=== PATIENT | male | born 1945 | race Caucasian/White ===

== ENCOUNTER → 2018-05-08 07:03 | Outpatient (CLI) | payer MEDICARE, SELFPAY ==
[2018-05-08 07:57] LABS: Add Manual Diff / Slide Review NO; Basophils Absolute Auto 0 /uL (0-100); Basophils Percent Auto 0.4 % (0-2); Eosinophils Absolute Auto 100 /uL (0-450); Eosinophils Percent Auto 2.3 % (2-4); Hematocrit 44.6 % (41-53); Lymphocytes Absolute Auto 1300 /uL (1100-4500); Lymphocytes Percent Auto 27.9 % (25-40); Mean Corpuscular HGB Conc 33.6 % (30-36); Mean Corpuscular Hemoglobin 31.3 PG (26-34); Mean Corpuscular Volume 93.2 fL (80-100); Monocytes Absolute Auto 400 /uL (0-900); Monocytes Percent Auto 9.4 % (3-14); Neutrophils Absolute Auto 2700 /uL (1500-7000); Platelet Count 198 X10^3/uL (150-400); Red Blood Cell Count 4.79 X10^6/uL (4.5-5.9); Red Cell Distribution Width 13.5 % (11.6-14.8); White Blood Cell Count 4.5 X10^3/uL (4.5-11.0)
[2018-05-08 08:22] LABS: Alanine Aminotransferase 45 IU/L (21-72); Albumin 4.1 g/dL (3.5-5.0); Albumin Globulin Ratio 1.4 (1.0-2.8); Alkaline Phosphatase 79 U/L (38-126); Aspartate Aminotransferase 27 IU/L (17-59); Bilirubin Total 0.4 mg/dL (0.2-1.3); Blood Urea Nitrogen 18 mg/dL (9-20); Calcium 8.9 mg/dL (8.4-10.2); Carbon Dioxide 27 mmol/L (22-32); Chloride 105 mmol/L (98-107); Cholesterol 262 mg/dL (140-199); Estimated Glomerular Filt Rate > 60.0 mL/min (>60); Glucose 104 mg/dL (80-110); HDL Cholesterol 56 mg/dL (40-60); HEMOLYSIS < 15 (0-50); LDL Cholesterol Calculated 162 mg/dL (<100); Potassium 3.8 mmol/L (3.4-5.1); Sodium 140 mmol/L (137-145); Total Protein 7.1 g/dL (6.3-8.2); Triglycerides 218 mg/dL (35-150)
[2018-05-08 08:50] LABS: TSH w/ Reflex to FT4 2.07 uIU/mL (0.47-4.68)
[2018-05-08 08:52] LABS: Prostate Specific Antigen Scrn 2.16 ng/mL (0.1-4.0)
== END ==
PROVIDERS: Family Provider Family Medicine; PCP Family Medicine; Visit Provider Family Medicine
DX: Z00.00 Encounter for general adult medical examination without abnormal findings (principal); Z12.5 Encounter for screening for malignant neoplasm of prostate; Z13.6 Encounter for screening for cardiovascular disorders
CPT/HCPCS: 36415; 80053; 80061; 84443; 85025; G0103

== ENCOUNTER → 2018-09-11 14:20 | Outpatient (CLI) | payer MEDICARE, SELFPAY ==
[2018-09-11 14:53] LABS: Hematocrit 41.8 % (41-53); Hemoglobin 14.3 g/dL (13.5-17.5); Mean Corpuscular HGB Conc 34.2 % (30-36); Mean Corpuscular Hemoglobin 31.6 PG (26-34); Mean Corpuscular Volume 92.4 fL (80-100); Platelet Count 196 X10^3/uL (150-400); Red Blood Cell Count 4.52 X10^6/uL (4.5-5.9); Red Cell Distribution Width 13.5 % (11.6-14.8); White Blood Cell Count 4.5 X10^3/uL (4.5-11.0)
[2018-09-11 15:19] LABS: Alanine Aminotransferase 43 IU/L (21-72); Albumin 3.8 g/dL (3.5-5.0); Albumin Globulin Ratio 1.5 (1.0-2.8); Alkaline Phosphatase 78 U/L (38-126); Aspartate Aminotransferase 27 IU/L (17-59); BUN Creatinine Ratio 14.4 (6-22); Bilirubin Total 0.4 mg/dL (0.2-1.3); Blood Urea Nitrogen 13 mg/dL (9-20); Carbon Dioxide 26 mmol/L (22-32); Chloride 108 mmol/L (98-107); Estimated Glomerular Filt Rate > 60.0 mL/min (>60); Globulin 2.6 g/dL (1.7-4.1); Glucose 108 mg/dL (80-110); HEMOLYSIS < 15 (0-50); Lipase 102 U/L (23-300); Potassium 4.3 mmol/L (3.4-5.1); Sodium 141 mmol/L (137-145); Total Protein 6.4 g/dL (6.3-8.2)
[2018-09-11 16:43] LABS: Neutrophils Absolute Manual 2835 /uL (3000-5900); RBC Morphology Normal Morphology; Total Cells Counted 100
== END ==
PROVIDERS: PCP Family Medicine; Visit Provider Family Medicine
DX: E78.5 Hyperlipidemia, unspecified (principal); R53.82 Chronic fatigue, unspecified
CPT/HCPCS: 36415; 80053; 83690; 85025

== ENCOUNTER 2018-12-11 07:53 | Day surgery (SDC) | payer MEDICARE, SELFPAY ==
[2018-12-05 15:02] VITALS: BMI 23.6
[2018-12-11] VITALS (9 sets, daily range): BP systolic 113–131; BP diastolic 69–83; PULSE 78–98; RESP 12–16; TEMP 36.2–36.7; O2SAT 88–98; BMI 23.7
--- NOTE | 2018-12-11 08:46 | PM.HP.1 ---
History of Present Illness History of Present Illness Date Patient Seen: 12/11/18 Time Patient Seen: 08:47 Chief complaint: [id number] Narrative: Patient is gentleman here for repair of bilateral inguinal hernias. Patient History Medical History (Updated 12/05/18 @ 15:04 by Leisa Edwards RN) Chicken pox (Resolved) GERD (gastroesophageal reflux disease) (Chronic ~1989) Hearing loss (Chronic ~1999) Hepatitis A (Acute) Jaundice due to hepatitis (Resolved 1971) Measles (Resolved) Mumps (Resolved) Toe fracture, right (Resolved 2013) Surgical History Anesthesia (Resolved) History of rectal surgery (Resolved 1997) Status post colonoscopy (Resolved 2008) Family History Father Brain tumor Stroke Mother Bowel obstruction Cancer Sister No problems noted. Social History marital status: household members: spouse occupational status: previously employed Smoking Status: Former smoker alcohol intake: current substance use type: does not use Family & Social History Social History: household members spouse Tobacco & Substance use: Tobacco type cigarettes Smoking Status Former smoker alcohol intake current alcohol intake frequency 0-2 drinks per day Substance Use Type marijuana Meds Home Medications and Allergies Home Medications Medication Instructions Recorded Confirmed Type omeprazole 20 mg capsule,delayed 20 mg PO DAILY 10/24/17 12/11/18 History release zolpidem 5 mg tablet 5 mg PO BEDTIME PRN #5 tab 05/09/18 12/05/18 Rx hydrocortisone [Proctosol HC] 2.5 % PA TIDP PRN 12/05/18 12/05/18 History Allergies Allergy/AdvReac Type Severity Reaction Status Date / Time No Known Drug Allergies Allergy Verified 10/25/18 10:04 Review of Systems Review of Systems ROS Unobtainable: All systems reviewed & are unremarkable except as noted in HPI and below Exam Narrative Exam Narrative: Operative no apparent distress. Eyes are nonicteric. Lungs clear. Heart regular rate and rhythm. Abdomen is scaphoid soft nontender. Bilateral inguinal hernias. A small raised area just beneath the umbilicus. No cellulitis. Bilateral inguinal hernias. No rashes of the skin. Alert and oriented x3. Assessment & Plan Assessment & Plan narrative: I have discussed the procedure with him probable use of mesh discussed. He appears to understand. Risks and benefits discussed at length in the office. He has no questions.
--- NOTE | 2018-12-11 08:48 | PM.PREOP ---
Pre-operative Note Interval Note History & Physical reviewed/Exam performed by Physician: Yes Changes to H&P: No
[2018-12-11] MEDS: LACTATED RINGERS 1,000 ML 42 ML IV ×2 (09:01→11:12)
[2018-12-11] MEDS: CEFAZOLIN 2 GM/100 ML FROZ.PIGGY IV (09:06)
--- NOTE | 2018-12-11 09:23 | SUR.OPER ---
Supine on padded OR bed, head on pillow, arms secured on padded arm boards at <90 degrees abduction, legs uncrossed, safety belt at thigh, tape over blanket over lower legs.
[2018-12-11] MEDS: BUPIVACAINE 0.5% (PF) VIAL 30 ML INJ (09:26)
--- NOTE | 2018-12-11 11:32 | PM.OP.1 ---
Operative Date/Time/Diagnoses Date of procedure: 12/11/18 Time of procedure: 11:32 Pre-op diagnosis: Bilateral inguinal hernias reducible. Post-op diagnosis: same (Both were direct hernias. The left side had a lipoma of the cord as well.) Procedure & Clinicians Procedure: Repair with onlay of mesh. See details below Same procedure as scheduled: Yes Indications: Symptomatic bilateral inguinal hernias Surgeon: Harrison Dodson Click Yes if Unassisted: Yes Anesthesia Type: General Operative Notes Findings: Direct hernias. The floor was basically obliterated on both sides. Large amount of preperitoneal fat protruding through. Closure Type: primary Specimen(s): none sent Prosthetic devices, grafts, tissues, transplants, or devices: 2 x 4 in mesh on each side Estimated Blood Loss (mL): 15 Blood products transfused: none Procedure in detail: The patient was placed supine on the operating room table and underwent general LMA anesthesia. He was prepped and draped in the usual fashion. A transverse incision was made overlying the internal ring on the right side and carried down to the level of the external oblique. The external oblique was opened parallel with its fibers through the external ring. The cord structures were elevated. The cremaster was opened proximally and search made for an indirect sac. None was found. The floor was examined and was found to be essentially obliterated. It was paper thin. Large amount of preperitoneal fat was bulging up through the floor. I opened the floor from near the internal ring toward the pubic tubercle. The preperitoneal fat was reduced on the underside. I sewed the cut edge of the lateral tissue to the underside of the medial sewing from pubic tubercle to to form a new internal ring. Using the same suture material I then ran the edge of the ilioinguinal ligament and sewed it to the cut edge of the medial tissue by running back to the pubic tubercle. Suture was tied at the pubic tubercle. . A patch of mesh 2 x 4 in was placed across the floor and tacked at the pubic tubercle, the posterior lamella of the anterior rectus sheath, the ilioinguinal ligament, and superior lateral to the cord. An opening was made as necessary to allow the egress of the cord through the mesh. The opening was made large enough to prevent tight constriction of the cord. Sutures of 0 Tycron were used to secure the mesh. The external oblique was closed with a running 3 0 Vicryl. The subcu was closed with interrupted 3 0 Vicryl. The skin was closed with a running 4 0 Vicryl subcuticular attention was then turned to the left side. A mirror incision was made in the left side and an identical operation was undertaken with a few exceptions. On the left there was a lipoma of the cord that I dissected from cord structures and ligated at the level the deep pick gastric vessels. The distal portion was removed. The tissues were so attenuated in the floor that I chose to suture edge of transversalis and grabbed a portion of the edge of the rectus to the inguinal ligament and the ileopubic tract on the lateral side. I used interrupted sutures of 0 Tycron to do this. This recreated internal ring. I made a relaxing incision in the posterior lamella the anterior rectus sheath to prevent too tight a closure. I then placed a piece of mesh over the entire area and sutured it as described above. Closure on the left was then performed in an aunt and uncle path fashion to that on the right. Mastisol and Steri-Strips were applied to both wounds after look injecting local. Dressing was applied the patient was awakened and extubated taken recovery area in good condition. Complications: none Post-operative Condition: stable Disposition: PACU
--- NOTE | 2018-12-11 12:15 | SUR.PHASEII ---
PT ARRIVED TO PHASE II VIA STRETCHER. PT SITTING UP, ALERT AND TALKING TO RN AND AT BEDSIDE. PT DENIES ANY NAUSEA OR PAIN/DISCOMFORT AT THIS TIME. REVIEWED DC INSTRUCTIONS WITH PT AND PT SPOUSE. NO FURTHER QUESTIONS OR CONCERNS VOICED AT THIS TIME. BED IN LOWEST POSITION AND CALL LIGHT GIVEN TO PT. PT APPEARS COMFORTABLE AT THIS TIME.
== END 2018-12-11 12:40 | disposition home or self-care (01) ==
PROVIDERS: PCP Family Medicine; Visit Provider Specialist
PROC: (CPT 49505; principal; 2018-12-11 09:15)
DX: K40.20 Bilateral inguinal hernia, without obstruction or gangrene, not specified as recurrent (principal); D17.6 Benign lipomatous neoplasm of spermatic cord
CPT/HCPCS: 49505; C1781; J0690; J1100; J1885; J2250; J2405; J2704; J3010

== ENCOUNTER → 2019-08-14 13:19 | Outpatient (CLI) | payer MEDICARE, SELFPAY ==
[2019-08-15 09:14] LABS: COVID19 Sendout NOT DETECTED (Not Detect)
== END ==
PROVIDERS: PCP Family Medicine; Visit Provider Registered Nurse
DX: Z01.812 Encounter for preprocedural laboratory examination (principal)
CPT/HCPCS: 87635

== ENCOUNTER → 2019-08-17 07:12 | Outpatient (CLI) | payer MEDICARE, SELFPAY ==
--- NOTE | 2019-08-17 08:13 | PM.TREADMILL ---
Cardiac Stress Test Report Referral & Results Date Patient Seen: 08/17/19 Time Patient Seen: 08:00 Requesting provider: Carlos Briseno Indication: Weakness Rest ECG: NSR Procedure Note: Today following both written and verbal informed consent, the patient was exercised according to a standard [place] protocol. The patient exercised for a total of 9 minutes achieving a maximum heart rate of 158. Patient's maximum systolic blood pressure was 160. This was an estimated 10.1 METs. Normal hemodynamic response to exercise. No signs or symptoms of angina. Presenting symptom not reproduced with exertion. No change in rhythm. 0.[address] deviations in inferior leads that resolved rapidly with rest. Excellent exercise capacity (ROXI-30% on active scale). Impression: Low probability for ischemia. Rothman treadmill score of 7 is correlated with a 97% 5 year survival rate from cardiac mortality. Please note: Actual ECG tracings can be found in the PACS system.
== END ==
PROVIDERS: PCP Family Medicine; Referring Provider Family Medicine; Visit Provider Family Medicine
DX: R53.1 Weakness (principal)
CPT/HCPCS: 93016; 93017; 93018

== ENCOUNTER → 2020-05-23 14:01 | Outpatient (CLI) | payer MEDICARE, SELFPAY ==
--- NOTE | 2020-05-23 | DI.RAD.S_ITS ---
PROCEDURE: XR LUMBAR SPINE 2-3V INDICATIONS: LEFT LEG PAIN TECHNIQUE: 3 views of the lumbar spine were acquired. COMPARISON: None. FINDINGS: Bones: 5 [id number] vertebrae are present. There is normal bony alignment. No vertebral body compression fractures. No suspicious bony lesions. Mild L1-L2, L2-L3, L3-L4 and L5-S1 degenerative disc disease. Mild L3-L4, L4-L5 and L5-S1 facet arthropathy. Soft tissues: Overlying bowel gas pattern is normal. No suspicious soft tissue calcifications. IMPRESSION: 1. Multilevel degenerative disc disease. 2. Multilevel facet arthropathy. 3. No fracture. No acute osseous lesion. If symptoms and/or clinical suspicion for pathology persists, evaluation with MRI should be considered for further assessment. Dictated by: Samira Sofia MD, PhD on 05/23/2020 at 16:58 Approved by: Samira Sofia MD, PhD on 05/23/2020 at 17:00
== END ==
PROVIDERS: PCP Family Medicine; Referring Provider Chiropractor; Visit Provider Chiropractor
DX: M79.605 Pain in left leg (principal); M51.36 Other intervertebral disc degeneration, lumbar region; M47.816 Spondylosis without myelopathy or radiculopathy, lumbar region
CPT/HCPCS: 72100

== ENCOUNTER → 2020-09-16 14:54 | Outpatient (CLI) | payer MEDICARE, SELFPAY ==
[2020-09-16 15:11] LABS: Bacteria Urine None Seen; RBC Urine None Seen (0-5/HPF); WBC Urine None Seen (0-5/HPF)
[2020-09-16 15:41] LABS: Add Manual Diff / Slide Review NO; Basophils Absolute Auto 0 /uL (0-100); Basophils Percent Auto 0.5 % (0-2); Eosinophils Absolute Auto 0 /uL (0-450); Eosinophils Percent Auto 0.5 % (2-4); Hematocrit 42.6 % (41-53); Hemoglobin 13.9 g/dL (13.5-17.5); Lymphocytes Absolute Auto 800 /uL (1100-4500); Lymphocytes Percent Auto 21.1 % (25-40); Mean Corpuscular HGB Conc 32.8 % (30-36); Mean Corpuscular Hemoglobin 29.8 PG (26-34); Monocytes Absolute Auto 500 /uL (0-900); Monocytes Percent Auto 12.1 % (3-14); Neutrophils Absolute Auto 2500 /uL (1500-7000); Neutrophils Percent Auto 65.8 % (50-75); Platelet Count 178 X10^3/uL (150-400); Red Blood Cell Count 4.68 X10^6/uL (4.5-5.9); Red Cell Distribution Width 13.8 % (11.6-14.8); White Blood Cell Count 3.8 X10^3/uL (4.5-11.0)
[2020-09-16 15:54] LABS: Appearance Urine UA CLEAR; Bilirubin Urine UA NEGATIVE (NEGATIVE); Color Urine UA YELLOW; Glucose Urine UA NEGATIVE (Negative); Ketones Urine UA NEGATIVE (NEGATIVE); Leukocyte Esterase Urine UA NEGATIVE (NEGATIVE); Nitrite Urine UA NEGATIVE (Negative); Occult Blood Urine UA NEGATIVE (Negative); Protein Urine UA NEGATIVE (Negative); Specific Gravity Urine UA <=1.005 (1.000-1.035); Urobilinogen Urine UA 0.2 E.U./dL (0.2)
[2020-09-16 15:58] LABS: Alanine Aminotransferase 52 IU/L (<50); Albumin 3.9 g/dL (3.5-5.0); Albumin Globulin Ratio 1.3 (1.0-2.8); Alkaline Phosphatase 92 U/L (38-126); Aspartate Aminotransferase 43 IU/L (17-59); Bilirubin Total 0.4 mg/dL (0.2-1.3); Blood Urea Nitrogen 13 mg/dL (9-20); C-Reactive Protein Quant 1.5 mg/dL (<1.0); Calcium 8.9 mg/dL (8.4-10.2); Carbon Dioxide 24 mmol/L (22-32); Chloride 106 mmol/L (98-107); Estimated Glomerular Filt Rate > 60.0 mL/min (>60); Glucose 171 mg/dL (80-110); HEMOLYSIS < 15 (0-50); Potassium 4.1 mmol/L (3.4-5.1); Sodium 136 mmol/L (137-145); Total Protein 6.9 g/dL (6.3-8.2)
[2020-09-16 16:08] LABS: Procalcitonin 0.18 ng/mL (<0.5)
[2020-09-16 16:15] LABS: Culture Indicated Urine Cult Not Indicated; Urine Comments Microscopic Normal
[2020-09-16 16:23] LABS: Prostate Specific Antigen 1.49 ng/mL (0.10-4.00)
== END ==
PROVIDERS: PCP Family Medicine; Referring Provider Family Medicine; Visit Provider Family Medicine
DX: I10 Essential (primary) hypertension; R52 Pain, unspecified
CPT/HCPCS: 36415; 80053; 81001; 84145; 84153; 85025; 86140

== ENCOUNTER → 2020-10-07 16:06 | Outpatient (CLI) | payer MEDICARE, SELFPAY ==
[2020-10-07 16:31] LABS: Add Manual Diff / Slide Review NO; Basophils Absolute Auto 0 /uL (0-100); Basophils Percent Auto 0.4 % (0-2); Eosinophils Absolute Auto 100 /uL (0-450); Eosinophils Percent Auto 1.7 % (2-4); Hematocrit 40.1 % (41-53); Hemoglobin 13.3 g/dL (13.5-17.5); Lymphocytes Absolute Auto 1100 /uL (1100-4500); Lymphocytes Percent Auto 22.6 % (25-40); Mean Corpuscular HGB Conc 33.2 % (30-36); Mean Corpuscular Hemoglobin 30.3 PG (26-34); Mean Corpuscular Volume 91.3 fL (80-100); Monocytes Absolute Auto 400 /uL (0-900); Monocytes Percent Auto 8.3 % (3-14); Neutrophils Absolute Auto 3300 /uL (1500-7000); Platelet Count 216 X10^3/uL (150-400); Red Blood Cell Count 4.39 X10^6/uL (4.5-5.9); Red Cell Distribution Width 14.1 % (11.6-14.8)
[2020-10-11 19:39] LABS: Percent Free Testosterone 2.63 % (1.50-4.20); Testosterone Free 6.77 ng/dL (5.00-21.00); Testosterone Total 257.3 ng/dL (264.0-916.0)
== END ==
PROVIDERS: PCP Family Medicine; Referring Provider Family Medicine; Visit Provider Family Medicine
DX: E78.5 Hyperlipidemia, unspecified (principal); R50.9 Fever, unspecified; N52.9 Male erectile dysfunction, unspecified; R52 Pain, unspecified; R53.83 Other fatigue; R68.83 Chills (without fever)
CPT/HCPCS: 36415; 84402; 84403; 85025

== ENCOUNTER → 2020-11-19 10:54 | Outpatient (CLI) | payer MEDICARE, SELFPAY ==
[2020-11-19 11:45] LABS: Add Manual Diff / Slide Review NO; Basophils Absolute Auto 0 /uL (0-100); Basophils Percent Auto 0.3 % (0-2); Eosinophils Absolute Auto 100 /uL (0-450); Eosinophils Percent Auto 1.3 % (2-4); Hematocrit 42.1 % (41-53); Hemoglobin 14.1 g/dL (13.5-17.5); Lymphocytes Absolute Auto 1100 /uL (1100-4500); Lymphocytes Percent Auto 21.9 % (25-40); Mean Corpuscular HGB Conc 33.6 % (30-36); Mean Corpuscular Hemoglobin 30.4 PG (26-34); Mean Corpuscular Volume 90.5 fL (80-100); Monocytes Absolute Auto 500 /uL (0-900); Monocytes Percent Auto 10.3 % (3-14); Neutrophils Absolute Auto 3500 /uL (1500-7000); Neutrophils Percent Auto 66.2 % (50-75); Platelet Count 201 X10^3/uL (150-400); Red Blood Cell Count 4.65 X10^6/uL (4.5-5.9); Red Cell Distribution Width 14.7 % (11.6-14.8); White Blood Cell Count 5.2 X10^3/uL (4.5-11.0)
[2020-11-19 12:05] LABS: Alanine Aminotransferase 34 IU/L (<50); Albumin 4.1 g/dL (3.5-5.0); Albumin Globulin Ratio 1.6 (1.0-2.8); Alkaline Phosphatase 86 U/L (38-126); Aspartate Aminotransferase 27 IU/L (17-59); BUN Creatinine Ratio 20.2 (6-22); Bilirubin Total 0.4 mg/dL (0.2-1.3); Blood Urea Nitrogen 17 mg/dL (9-20); Calcium 9.2 mg/dL (8.4-10.2); Carbon Dioxide 28 mmol/L (22-32); Chloride 106 mmol/L (98-107); Estimated Glomerular Filt Rate > 60.0 mL/min (>60); Globulin 2.5 g/dL (1.7-4.1); Glucose 108 mg/dL (80-110); HEMOLYSIS < 15 (0-50); Potassium 4.2 mmol/L (3.4-5.1); Sodium 138 mmol/L (137-145); Total Protein 6.6 g/dL (6.3-8.2)
[2020-11-19 12:39] LABS: Hemoglobin A1C% w Est Avg Glu 6.1 % (4.0-6.0)
== END ==
PROVIDERS: PCP Family Medicine; Referring Provider Family Medicine; Visit Provider Family Medicine
DX: R53.83 Other fatigue (principal); R50.9 Fever, unspecified; R52 Pain, unspecified; R63.4 Abnormal weight loss
CPT/HCPCS: 36415; 80053; 83036; 85025

== ENCOUNTER → 2020-11-27 08:52 | Outpatient (CLI) | payer MEDICARE, SELFPAY ==
--- NOTE | 2020-11-27 09:43 | DI.CT.S_ITS ---
PROCEDURE: CT CHEST ABD PEL W CON INDICATIONS: Fatigue weight loss shortness of breath fevers TECHNIQUE: After the administration of oral and intravenous contrast, axial sections acquired from the supraclavicular neck to the pubic symphysis. Coronal and sagittal reformats were performed. For radiation dose reduction, the following was used: automated exposure control, adjustment of mA and/or kV according to patient size. COMPARISON: None. FINDINGS: Image quality: Excellent. CHEST: Lower Neck: No enlarged lymph nodes. Thyroid: Unremarkable as visualized Axillae: No enlarged lymph nodes. Chest Wall: Unremarkable. Lungs and Airways: No consolidation or suspicious nodules. Pleura: No pneumothorax or pleural effusions. Heart: Heart size is normal. No pericardial effusion. Thoracic Vessels: The aorta and pulmonary arteries demonstrate normal size. Mediastinum and Va: No enlarged lymph nodes. Esophagus: No wall thickening. There is a large hiatal hernia containing stomach. ABDOMEN: Liver: Unremarkable. Gallbladder: Question 1.4 cm polypoid lesion versus noncalcified gallstone. No gallbladder wall thickening other than this location. Biliary ducts: Unremarkable. Pancreas: Unremarkable. Spleen: Unremarkable. Adrenal Glands: Unremarkable. Kidneys and Ureters: Unremarkable. Stomach and Bowel: There is organo-axial volvulus involving the stomach inside a large hiatal hernia. Peritoneum: No abnormal intraperitoneal fluid. No free air. Ventral Wall: No hernia. Abdominal Nodes: No retroperitoneal or mesenteric adenopathy by size criteria. Vessels: Aorta and inferior vena cava are normal in size. PELVIS: Pelvic Organs: Moderate to severe prostate enlargement. Diffusely prominent bilateral seminal vesicles. Bladder: Mild diffuse bladder wall thickening. Posterior basal nodularity likely represents extrinsic compression secondary to a nodular prostate. Pelvic Nodes: No enlarged lymph nodes. Miscellaneous: No inguinal hernias are seen. Bones: No lytic or blastic bony lesion. Lower lumbar facet arthropathy. IMPRESSION: 1. No evidence of malignancy in the chest. No evidence of acute pulmonary process. 2. Large hiatal hernia with organoaxial volvulus of the stomach. Organo-axial stomach volvulus occurring within a large hiatal hernia is typically incidental 3. Moderately severe prostate enlargement, nodularity at the base of the bladder open (presumed to represent extrinsic compression by the prostate), prominent bilateral seminal vesicles. Suggest correlation with clinical exam and PSA if this has not yet occurred. 4. Question 1.4 cm polypoid lesion of the gallbladder versus noncalcified stone. Recommend right upper quadrant ultrasound. Dictated by: Krunal Terry M.D. on 11/27/2020 at 11:58 Approved by: Krunal Terry M.D. on 11/27/2020 at 12:12
== END ==
PROVIDERS: PCP Family Medicine; Referring Provider Family Medicine; Visit Provider Family Medicine
DX: R50.9 Fever, unspecified (principal); R52 Pain, unspecified; R63.4 Abnormal weight loss; R53.83 Other fatigue; K44.9 Diaphragmatic hernia without obstruction or gangrene; N40.0 Benign prostatic hyperplasia without lower urinary tract symptoms; K82.9 Disease of gallbladder, unspecified
CPT/HCPCS: 71260; 74177; Q9967

== ENCOUNTER → 2021-10-07 09:16 | Outpatient (CLI) | payer MEDICARE, SELFPAY ==
--- NOTE | 2021-10-07 09:47 | DI.ECHO.S_ITS ---
[place] [facility]---------+ [facility] +---------+ : : [address] : : : : [id number] : : : : Phone: [phone]+ Echocardiogram Report + + :Name: SAMANTHA IRBY Study Date: 10/07/2021 Height: 70 in : :[facility] ReadingLocation: Weight: 170 lb : : Gender: Male BSA: 1.9 m2 : :: 1945 Age: 76 yrs BP: 121/74 mmHg: :Reason For Study: BERMUDEZ, HYPERLIPIDEMIA : :Ordering Physician: [place], : :WILMA Tierney Performed By: Poly Coyle : :Referring: WILMA IBRAHIM : + + Interpretation Summary The left ventricle is normal in size. The ejection fraction is estimated to be 55-60%. The right ventricle is normal in size and function. No significant valvular pathology seen. The IVC is of normal diameter and collapses greater than 50% with a sniff. This suggests a low right atrial pressure of 3 mm Hg. Procedure: A two-dimensional transthoracic echocardiogram with color flow and Doppler was performed. The study quality was technically adequate. There is no prior echocardiogram noted for this patient. The patient was in sinus rhythm with heart rates between 75-81 bpm during the exam. Left Ventricle: Proximal septal thickening is noted. The left ventricle is normal in size. There is no echo evidence for significant left ventricular outflow tract obstruction. There is no thrombus. The ejection fraction is estimated to be 55-60%. There are no focal wall motion abnormalities. MV E/A: 1.0 Med Peak E' Kory: 6.9 cm/sec E/E' med: 11.1. Right Ventricle: The right ventricle is normal in size and function. Atria: The left atrial size is normal. Right atrial size is normal. There is no Doppler evidence for an interatrial shunt. Mitral Valve: The mitral valve is normal in structure and function. Redundant elongated chordae are noted. There is trace mitral regurgitation. Aortic Valve: The aortic valve is trileaflet. The aortic valve opens well. There is no aortic valve stenosis. There is trace aortic regurgitation. Tricuspid Valve: The tricuspid valve is normal in structure and function. There is mild tricuspid regurgitation. Pulmonary artery pressures cannot be estimated because of the lack of a measurable TR jet velocity. Pulmonic Valve: The pulmonic valve leaflets are thin and pliable; valve motion is normal. There is no pulmonic valvular regurgitation. Great Vessels: The aortic root is normal size. The dimensions of the ascending aorta are normal. The IVC is of normal diameter and collapses greater than 50% with a sniff. This suggests a low right atrial pressure of 3 mm Hg. Pericardium/ Pleura There is no pericardial effusion. There is no pleural effusion. MMode/2D Measurements & Calculations LVIDd: 4.3 cm LVOT diam: 2.1 cm LVIDs: 2.8 cm Ao root diam: 3.1 cm FS: 35.6 % asc Aorta Diam: 3.2 cm EPSS: 0.46 cm Ao Arch Diam (Prox Trans): 2.9 cm IVSd: 0.48 cm LVPWd: 0.70 cm LV reyes. diameter/BSA (cm/m^2): 2.2 LV sys. diameter/BSA (cm/m^2): 1.4 LA A2 area: 17.9 cm2 RA long axis: 5.3 cm LA A4 area: 21.4 cm2 RA area: 17.2 cm2 LA length (vol): 6.1 cm RA vol: 47.4 ml LA vol: 53.0 ml RA : 24.4 ml/m2 LA vol index: 27.2 ml/m2 IVC diam: 1.4 cm RVD1 (basal): 3.9 cm RVD2 (mid): 3.4 cm TAPSE: 1.8 cm Doppler Measurements & Calculations Ao V2 max: 118.1 cm/sec LVOT Max Kory: 87.2 cm/sec Ao V2 mean: 80.0 cm/sec LV V1 max P.0 mmHg Ao max P.6 mmHg LV V1 VTI: 18.7 cm Ao mean P.0 mmHg CHENCHO(I,D): 2.5 cm2 Ao V2 VTI: 25.6 cm CHENCHO(V,D): 2.5 cm2 sev ratio: 0.73 CHENCHO indexed to BSA (cm^2/m^2): 1.3 MV E max kory: 76.2 cm/sec PA V2 max: 111.2 cm/sec MV A max kory: 74.6 cm/sec PA V2 mean: 72.6 cm/sec MV E/A: 1.0 PA mean P.4 mmHg Med Peak E' Kory: 6.9 cm/sec PA pr(Accel): 37.9 mmHg E/E' med: 11.1 Lat Peak E' Kory: 6.8 cm/sec E/E' lat: 11.1 E/e' average: 11.1 MV dec time: 0.[address] [facility] [facility] 64.3 ml Reading Physician:12:52 PM
--- NOTE | 2021-10-07 10:23 | DI.RAD.S_ITS ---
PROCEDURE: XR CHEST 2V INDICATIONS: BERMUDEZ; large hiatal hernia TECHNIQUE: 2 views of the chest were acquired. COMPARISON: [facility], CT, CT CHEST ABD PEL W CON, 11/27/2020, 9:58. FINDINGS: Surgical changes and devices: None. Lungs and pleura: An incomplete inspiratory result is noted, causing a crowded appearance to the lung markings. No focal infiltrates are seen. No pneumothorax or significant pleural effusions are seen. Mediastinum: Mediastinal contours are normal. Heart size is normal. There is a large hiatal hernia. Bones and chest wall: No suspicious bony abnormalities. Age-appropriate bony degenerative changes are seen. Soft tissues appear unremarkable. IMPRESSION: Low lung volumes, without a focal abnormality seen. Large hiatal hernia. Dictated by: Jono Limon M.D. on 10/07/2021 at 11:01 Approved by: Jono Limon M.D. on 10/07/2021 at 11:02
== END ==
PROVIDERS: PCP Family Medicine; Referring Provider Physician Assistant; Visit Provider Physician Assistant
DX: I07.1 Rheumatic tricuspid insufficiency (principal); R06.00 Dyspnea, unspecified; K44.9 Diaphragmatic hernia without obstruction or gangrene; E78.5 Hyperlipidemia, unspecified
CPT/HCPCS: 71046; 93306

== ENCOUNTER → 2021-12-04 06:35 | Outpatient (CLI) | payer MEDICARE, SELFPAY ==
[2021-12-04 08:42] LABS: Add Manual Diff / Slide Review NO; Basophils Absolute Auto 0 /uL (0-100); Basophils Percent Auto 0.4 % (0-2); Eosinophils Absolute Auto 100 /uL (0-450); Eosinophils Percent Auto 2.1 % (2-4); Hemoglobin 13.1 g/dL (13.5-17.5); Lymphocytes Absolute Auto 1300 /uL (1100-4500); Mean Corpuscular HGB Conc 33.5 % (30-36); Mean Corpuscular Hemoglobin 28.7 PG (26-34); Mean Corpuscular Volume 85.7 fL (80-100); Monocytes Absolute Auto 500 /uL (0-900); Monocytes Percent Auto 10.2 % (3-14); Neutrophils Absolute Auto 3000 /uL (1500-7000); Neutrophils Percent Auto 61.3 % (50-75); Platelet Count 214 X10^3/uL (150-400); Red Blood Cell Count 4.56 X10^6/uL (4.5-5.9); Red Cell Distribution Width 15.4 % (11.6-14.8); White Blood Cell Count 4.9 X10^3/uL (4.5-11.0)
[2021-12-04 09:03] LABS: Hemoglobin A1C% w Est Avg Glu 6.6 % (4.0-6.0)
[2021-12-04 09:14] LABS: Alanine Aminotransferase 27 IU/L (<50); Albumin Globulin Ratio 1.5 (1.0-2.8); Alkaline Phosphatase 88 U/L (38-126); Aspartate Aminotransferase 27 IU/L (17-59); Bilirubin Total 0.4 mg/dL (0.2-1.3); Blood Urea Nitrogen 19 mg/dL (9-20); Calcium 9.2 mg/dL (8.4-10.2); Carbon Dioxide 24 mmol/L (22-32); Chloride 107 mmol/L (98-107); Cholesterol 226 mg/dL (140-199); Estimated Glomerular Filt Rate > 60 mL/min (>60); Globulin 2.7 g/dL (1.7-4.1); Glucose 101 mg/dL (80-110); HDL Cholesterol 52 mg/dL (40-60); HEMOLYSIS < 15 (0-50); LDL Cholesterol Calculated 138 mg/dL (<100); Potassium 4.4 mmol/L (3.4-5.1); Sodium 141 mmol/L (137-145); Total Protein 6.7 g/dL (6.3-8.2); Triglycerides 179 mg/dL (35-150)
[2021-12-04 09:39] LABS: TSH w/ Reflex to FT4 4.07 uIU/mL (0.47-4.68)
== END ==
PROVIDERS: PCP Family Medicine; Referring Provider Internal Medicine Cardiovascular Disease; Visit Provider Internal Medicine Cardiovascular Disease
DX: E78.5 Hyperlipidemia, unspecified (principal); R73.03 Prediabetes; R53.83 Other fatigue; R06.02 Shortness of breath
CPT/HCPCS: 36415; 80053; 80061; 83036; 84443; 85025

== ENCOUNTER → 2022-02-02 08:22 | Outpatient (CLI) | payer MEDICARE, SELFPAY ==
--- NOTE | 2022-02-02 | DI.NM.S_ITS ---
PROCEDURE: NM YESENIA PERF SPECT REST & STR Rest and exercise myocardial perfusion SPECT with gated imaging and ejection fraction RADIOPHARMACEUTICAL: 12 mCi Tc-99m sestamibi IV at rest and 25.4 mCi Tc-99m sestamibi IV at peak exercise. A one day-protocol was performed. INDICATIONS: Shortness of breath TECHNIQUE: Radiopharmaceutical was injected at peak stress test, and also at rest. SPECT images were obtained. SPECT myocardial perfusion images were displayed in short axis, horizontal long axis, and vertical long axis views. Gated images were reviewed using mycujoo software. COMPARISON: None. CARDIAC STRESS: A standard [place] treadmill exercise tolerance test was performed by the patient under the supervision of an attending staff. The patient exercised for 9 minutes and 10 seconds; functional aerobic impairment (ROXI) is -53%. Hemodynamic data: There is normal blood pressure and heart rate response to exercise stress. Patient achieved 107% of maximum predicted heart rate at peak exercise. Symptoms: Patient denied chest pain during exercise. EKG: No diagnostic EKG changes of ischemia; no ectopy. FINDINGS: Raw data: There is good myocardial labeling by radiotracer. No significant motion artifacts. Lrdo-rw-yunwx ratio is 0.27 (normal is less than 0.38 for sestamibi tracer, and less than 0.50 for thallium tracer). Left ventricle function: Gated images demonstrate normal left ventricle wall thickening. No segmental wall motion abnormality. No transient ischemic dilation; TID is 0.8 (normal less than 1.3). The left ventricle resting end-diastolic volume is 59 mL. Left ventricle stress ejection fraction is 89%; normal values are above 45%. Myocardial perfusion: There is normal distribution of activity in the left and right ventricular myocardium. No fixed or reversible perfusion defects. IMPRESSION: Low risk, normal treadmill nuclear stress test. 1) No perfusion evidence of ischemia or infarction. 2) Normal left ventricular size, wall motion, and systolic function (EF post stress 89%). 3) No ST changes with exercise. 4) No angina during the study. 5) Excellent exercise capacity (10.1 METs, ROXI -53%). Target heart rate achieved. Appropriate BP response to exercise. 6) No prior nuclear stress test available for comparison. Dictated by: Andrew Maldonado MD on 02/02/2022 at 17:21 Approved by: Andrew Maldonado MD on 02/02/2022 at 17:24
[2022-02-02 09:38] LABS: COVID19 -Nasal RAPID Negative (Negative)
== END ==
PROVIDERS: PCP Family Medicine; Referring Provider Internal Medicine Cardiovascular Disease; Visit Provider Internal Medicine Cardiovascular Disease
DX: R06.02 Shortness of breath (principal); Z20.822 Contact with and (suspected) exposure to COVID-19
CPT/HCPCS: 78452; 87635; 93017; A9502

== ENCOUNTER → 2022-02-17 07:55 | Outpatient (CLI) | payer MEDICARE, SELFPAY ==
[2022-02-17 09:36] LABS: Hematocrit 41.9 % (41-53); Hemoglobin 14.2 g/dL (13.5-17.5)
[2022-02-17 09:44] LABS: Cholesterol 238 mg/dL (140-199); HDL Cholesterol 55 mg/dL (40-60); LDL Cholesterol Calculated 144 mg/dL (<100); Triglycerides 197 mg/dL (35-150)
[2022-02-17 09:50] LABS: Hemoglobin A1C% w Est Avg Glu 6.4 % (4.0-6.0)
[2022-02-17 10:02] LABS: HEMOLYSIS < 15 (0-50); Iron 79 ug/dL (49-181)
[2022-02-17 10:13] LABS: Percent Iron Saturation 21 % (20-50); Total Iron Binding Capacity 378 ug/dL (261-462); Transferrin 315 mg/dL (206-381)
== END ==
PROVIDERS: PCP Family Medicine; Referring Provider Physician Assistant; Visit Provider Physician Assistant
DX: E11.9 Type 2 diabetes mellitus without complications (principal); E78.2 Mixed hyperlipidemia; D64.9 Anemia, unspecified
CPT/HCPCS: 36415; 80061; 83036; 83540; 83550; 85014; 85018

== ENCOUNTER → 2022-04-01 10:42 | Outpatient (CLI) | payer MEDICARE, SELFPAY ==
--- NOTE | 2022-04-20 08:29 | DIAB.MNT ---
Initial Diabetes Medical Nutrition Therapy Assessment Name: Wiley Aguirre Date: 04/01/22 Time: 9424-0342 Dx: Type II Diabetes Wiley presents for initial DM visit. Attended community diabetes class. States he is trying to avoid DM meds. Has lost 15# since diagnosis due to diet changes, no sugar/white flour, sweets. Endorses improved energy. Prior to dx, symptoms included burning feet, loss of feeling in LE. Still having some burning in feet. Makes bread from scratch but now uses ww flour. Has questions regarding pathophysiology, A1c, diet recs. Looking for literature resources. Feels his lifestyle changes are sustainable. Happy with current diet. Diet Recall: 7a: eggs, toast, coffee with cream 10a: nuts 1130a: sandwich with cheese and tomato on ww 4p: apple 7p: 1c brown rice or potatoes, pro, veggies 730p: decaf coffee and cream Anthropometrics: Ht: 5'10 Wt: 160# reported Physical Activity: Increased since dx. Reports 45min of brisk walking with a group three days per week. Walks with five days per week for 25-30 min. Self-Monitoring Blood Glucose: None. . Diabetes Medications: None Pertinent Labs: HgA1c: 6.6% 11/2021; 6.4% 02/2022 Past Medical History: (Last Updated 12/05/18 @ 15:04 by Leisa Edwards RN) Chicken pox Childhood GERD (gastroesophageal reflux disease) (~1989) Hearing loss (~1999) Hepatitis A Jaundice due to hepatitis (1971) [id number] Measles Childhood Mumps Childhood Toe fracture, right (2013) 2nd toe Nutrition Rx: Carbohydrates: Meal:45g Snack:15-30g Nutrition Diagnosis: - Nutrition and food related knowledge deficit r/t questions regarding diet for BG mgmgnt, no previous MNT and new dx aeb pt report Intervention: This participant was very receptive. Provided appropriate educational handouts. Discussed the following topics: Completed intake assessment. Discussed barriers to care. Pathophysiology of T2DM HgA1c, its correlation to blood glucose numbers, and rationale for goal Benefits to having glucose meter Recommended servings for carbohydrates at meals and snacks Heart health nutrition Mediterranean diet benefits SMBG vs HgA1c Resources for DM management: websites and books Created SMART goals for patient self-care and success. Goals: Continue current diet Consider getting glucose meter Pair pro and carbs Follow-up: RDN CDCES follow-up prn. May attend class 2 and 3 of DSME classes. Adeline hDillon RDN, MAURA Certified Diabetes Care and Setter [employer] P: [phone] Thank you for this referral
== END ==
PROVIDERS: PCP Family Medicine; Referring Provider Family Medicine; Visit Provider Family Medicine
DX: E11.9 Type 2 diabetes mellitus without complications (principal); Z71.3 Dietary counseling and surveillance
CPT/HCPCS: 97802

== ENCOUNTER → 2022-05-21 07:33 | Outpatient (CLI) | payer MEDICARE, SELFPAY ==
[2022-05-21 08:47] LABS: Hemoglobin A1C% w Est Avg Glu 6.2 % (4.0-6.0)
[2022-05-21 09:31] LABS: Creatinine Urine Random 144.2 mg/dL
[2022-05-21 09:36] LABS: Microalbumin Urine Random < 0.6 mg/dL (0-1.6)
[2022-05-21 10:19] LABS: Prostate Specific Antigen Scrn 1.93 ng/mL (0.1-4.0)
== END ==
PROVIDERS: PCP Family Medicine; Referring Provider Family Medicine; Visit Provider Family Medicine
DX: E11.9 Type 2 diabetes mellitus without complications (principal); Z12.5 Encounter for screening for malignant neoplasm of prostate
CPT/HCPCS: 36415; 82043; 82570; 83036; G0103

== ENCOUNTER → 2022-09-23 11:00 | Outpatient (CLI) | payer MEDICARE, SELFPAY ==
[2022-09-24 09:17] LABS: Labcorp Hemoglobin (Hb) A1c 5.9 % (4.8-5.6)
== END ==
PROVIDERS: PCP Family Medicine; Referring Provider Family Medicine; Visit Provider Family Medicine
DX: E11.9 Type 2 diabetes mellitus without complications (principal)
CPT/HCPCS: 36415; 83036

== ENCOUNTER → 2022-11-10 14:40 | Outpatient (CLI) | payer MEDICARE, SELFPAY ==
[2022-11-10 15:40] LABS: Blood Urea Nitrogen 15 mg/dL (9-20); Calcium 8.9 mg/dL (8.4-10.2); Carbon Dioxide 27 mmol/L (22-32); Chloride 105 mmol/L (98-107); Estimated Glomerular Filt Rate > 60 mL/min (>60); Glucose 103 mg/dL (80-110); HEMOLYSIS < 15 (0-50); Potassium 4.6 mmol/L (3.4-5.1); Sodium 139 mmol/L (137-145)
== END ==
PROVIDERS: PCP Family Medicine; Referring Provider Family Medicine; Visit Provider Family Medicine
DX: E11.9 Type 2 diabetes mellitus without complications (principal)
CPT/HCPCS: 36415; 80048; 83036

== ENCOUNTER → 2022-12-23 15:02 | Outpatient (CLI) | payer MEDICARE, SELFPAY | PROVIDERS: PCP Family Medicine; Referring Provider Family Medicine; Visit Provider Family Medicine | DX: Z23 Encounter for immunization (principal) | CPT/HCPCS: 90471; 90662 ==

== ENCOUNTER → 2023-05-17 06:58 | Outpatient (CLI) | payer MEDICARE, SELFPAY ==
[2023-05-17 08:30] LABS: Add Manual Diff / Slide Review NO; Basophils Absolute Auto 0 /uL (0-100); Basophils Percent Auto 0.3 % (0-2); Eosinophils Absolute Auto 100 /uL (0-450); Eosinophils Percent Auto 2.5 % (2-4); Hematocrit 42.8 % (41-53); Hemoglobin 14.4 g/dL (13.5-17.5); Lymphocytes Absolute Auto 1200 /uL (1100-4500); Lymphocytes Percent Auto 24.5 % (25-40); Mean Corpuscular HGB Conc 33.7 % (30-36); Mean Corpuscular Hemoglobin 31.1 PG (26-34); Mean Corpuscular Volume 92.2 fL (80-100); Monocytes Absolute Auto 500 /uL (0-900); Monocytes Percent Auto 9.7 % (3-14); Neutrophils Absolute Auto 3100 /uL (1500-7000); Platelet Count 198 X10^3/uL (150-400); Red Blood Cell Count 4.64 X10^6/uL (4.5-5.9); Red Cell Distribution Width 13.6 % (11.6-14.8); White Blood Cell Count 4.9 X10^3/uL (4.5-11.0)
[2023-05-17 08:41] LABS: Hemoglobin A1C% w Est Avg Glu 6.1 % (4.0-6.0)
[2023-05-17 09:15] LABS: Alanine Aminotransferase 22 IU/L (<50); Albumin Globulin Ratio 1.5 (1.0-2.8); Alkaline Phosphatase 83 U/L (38-126); Aspartate Aminotransferase 22 IU/L (17-59); BUN Creatinine Ratio 19.6 (6-22); Bilirubin Total 0.6 mg/dL (0.2-1.3); Blood Urea Nitrogen 18 mg/dL (9-20); Carbon Dioxide 26 mmol/L (22-32); Chloride 107 mmol/L (98-107); Cholesterol 234 mg/dL (140-199); Estimated Glomerular Filt Rate > 60 mL/min (>60); Globulin 2.6 g/dL (1.7-4.1); Glucose 105 mg/dL (80-110); HDL Cholesterol 56 mg/dL (40-60); HEMOLYSIS < 15 (0-50); LDL Cholesterol Calculated 145 mg/dL (<100); Potassium 4.2 mmol/L (3.4-5.1); Sodium 141 mmol/L (137-145); Total Protein 6.6 g/dL (6.3-8.2); Triglycerides 163 mg/dL (35-150)
== END ==
PROVIDERS: PCP Family Medicine; Referring Provider Family Medicine; Visit Provider Family Medicine
DX: E11.9 Type 2 diabetes mellitus without complications (principal); E78.2 Mixed hyperlipidemia
CPT/HCPCS: 36415; 80053; 80061; 83036; 85025

== ENCOUNTER 2024-03-20 07:52 | Day surgery (SDC) | payer MEDICARE, SELFPAY ==
[2024-03-20] VITALS (7 sets, daily range): BP systolic 87–133; BP diastolic 48–99; PULSE 72–89; RESP 12–20; TEMP 36.1–36.7; O2SAT 94–98
--- NOTE | 2024-03-20 | PATH_ITS ---
[facility] Accession Number: [id number] No. of containers..01 Tissue . 01 Material submitted: . rectum - RECTAL MASS @ 10 CM . 01 Diagnosis: RECTAL MASS AT 10 CM, BIOPSY: Invasive adenocarcinoma, moderately differentiated, ulcerated. Lymphovascular invasion not identified. Intact DNA mismatch repair proteins by immunohistochemistry; please see below. . . . IMMUNOHISTOCHEMISTRY TESTING FOR MISMATCH REPAIR PROTEINS: . MLH1: Intact nuclear expression. MSH2: Intact nuclear expression. MSH6: Intact nuclear expression. PMS2: Intact nuclear expression. Background nonneoplastic tissue/internal control with intact nuclear expression. . INTERPRETATION: No loss of nuclear expression of MMR proteins: low probability of microsatellite instability-high (MSI-H)* . * There are exceptions to the above IHC interpretations. These results should not be considered in isolation, and clinical correlation with genetic counseling is recommended to assess the need for germline testing. . * This test was developed and the performance characteristics were validated by [employer]. It has not been cleared or approved by the U.S. Food and Drug Administration. [facility] 03/23/2024 1136 Local . 01 Comment: As part of routine senior quality technician, this case was also reviewed by Dr. Annel Martin, who agrees with the diagnosis of invasive adenocarcinoma. The finding of invasive adenocarcinoma was reported to Dr. Aguirre by Dr. Clement on 03/22/2024 at 1 p.m. . 01 Electronically signed: . Terrance Clement MD, PhD, Pathologist NPI- [id number] . 01 Gross description: . Received in formalin with two patient identifiers and 1. Rectal mass at 10 cm, are multiple ferrari soft tissue fragments aggregating to 1.2 x 0.5 x 0.2 cm. Filtered and submitted in cassette A1. ([id number]) /MYESHA 03/21/2024 1038 Local . 01 Pathologist provided ICD-10: C20 . 01 CPT . 934740, [id number], [id number] Specimen Comment: A courtesy copy of this report has been sent to [facility] Pathology Performed at: [address] [id number] MD Herberth Perkins MD Phone: [phone]
--- NOTE | 2024-03-20 | DI.CT.S_ITS ---
PROCEDURE: CT CHEST ABD PEL W CON INDICATIONS: malignant-appearing partially obstructing rectal mass TECHNIQUE: After the administration of intravenous contrast, 5 mm thick sections acquired from the lung apices to the symphysis. 5 mm coronal and sagittal reformats were performed, with additional 7 mm MIP reformats through the lungs. For radiation dose reduction, the following was used: automated exposure control, adjustment of mA and/or kV according to patient size. COMPARISON: [facility], CT, CT CHEST ABD PEL W CON, 11/27/2020, 9:58. FINDINGS: Image quality: Excellent. CHEST: Lower Neck: No enlarged lymph nodes. Thyroid: No thyroid nodules which require sonographic follow up, per consensus guidelines. Axillae: No enlarged lymph nodes. Chest Wall: Unremarkable. Lungs and Pleura: No pneumothorax or pleural effusions. No consolidation or suspicious nodules. Heart: Heart size is normal. No pericardial effusion. Thoracic Vessels: The aorta and pulmonary arteries demonstrate normal size. Mediastinum and Va: No enlarged lymph nodes. Esophagus: Large hiatal hernia. ABDOMEN: Liver: No solid mass. Gallbladder: Cholelithiasis without wall thickening or adjacent fat stranding to suggest acute cholecystitis. Biliary ducts: No biliary dilation. Pancreas: Moderate atrophy. Solid appearing lesion in the tail of the pancreas measuring 1.7 x 1.3 centimeter (series 4, image 103). Spleen: Size is within normal limits. Adrenal Glands: No adrenal nodules. Kidneys and Ureters: No hydronephrosis. No solid mass. No complex renal cystic lesion which requires follow up. Stomach and Bowel: 3.9 centimeter segment thickening of the rectosigmoid junction (series 4, image 178). No adjacent mesorectal lymph nodes. Peritoneum: No abnormal intraperitoneal fluid. No free air. Ventral Wall: No significant ventral hernia. Abdominal Nodes: No retroperitoneal or mesenteric adenopathy by size criteria. Vessels: Aorta and inferior vena cava are normal in size. PELVIS: Pelvic Organs: Unremarkable. Bladder: No bladder wall thickening, accounting for underdistention. Pelvic Nodes: No enlarged lymph nodes. Miscellaneous: No inguinal hernias are seen. Bones: No aggressive osseous abnormality. IMPRESSION: 3.9 centimeter segment of circumferential thickening of the rectosigmoid junction. No adjacent mesorectal lymph nodes. No pelvic lymphadenopathy. No evidence of metastatic disease. Solid-appearing lesion in the tail the pancreas measuring 1.7 x 1.3 centimeter. Remaining pancreatic parenchyma is atrophic. Findings could represent non atrophic tissue, intrapancreatic splenule, less likely neuroendocrine tumor. Recommend nonurgent MRI with contrast for confirmation (pancreatic mass protocol). Large hiatal hernia. Dictated by: Durga Thakkar M.D. on 03/20/2024 at 10:52 Approved by: Durga Thakkar M.D. on 03/20/2024 at 11:00
--- NOTE | 2024-03-20 08:13 | SUR.PREOP ---
Pt presents for colonoscopy with type 6 brown stool despite completion of bowel prep. Fleet enema provided to patient per request of Dr. Aguirre.
[2024-03-20] MEDS: SODIUM CHLORIDE 0.9% 1,000 ML 84 ML IV (08:35)
--- NOTE | 2024-03-20 08:59 | PM.HP.1 ---
History of Present Illness History of Present Illness Date Patient Seen: 03/20/24 Time Patient Seen: 08:20 Chief complaint: SDC Narrative: 78-year-old white male had a previous colonoscopy with polyp over 10 years ago. Presents with what is booked as a screening colonoscopy however he states he is having issues with what he believes to be hemorrhoidal bleeding. [facility] Medical History (Updated 03/20/24 @ 09:00 by Bry Aguirre MD) Colon cancer screening Localized pruritus Mild anemia Fatigue Hemorrhoids Hepatitis A Jaundice due to hepatitis (1971) Chicken pox GERD (gastroesophageal reflux disease) (~1989) Hearing loss (~1999) Measles Mumps Toe fracture, right (2013) Surgical History Anesthesia History of rectal surgery (1997) Status post colonoscopy (2008) Family History Father Brain tumor Stroke Mother Bowel obstruction Cancer Sister No problems noted. Social History marital status: household members: spouse occupational status: previously employed Smoking Status: Former smoker alcohol intake: current substance use type: does not use Meds Home Medications and Allergies Home Medications Medication Instructions Recorded Confirmed Type peg 3350-electrolytes 236 240 ml PO Q10M #4,000 mL 09/16/23 Rx gram-22.74 gram-6.74 gram-5.86 gram solution (Golytely) nirmatrelvir 300 mg (150 mg See Rx Instructions PO .COMPLEX 11/03/23 Rx x2)-ritonavir 100 mg tablet,dose #30 ea pack (Paxlovid) Allergies Allergy/AdvReac Type Severity Reaction Status Date / Time No Known Drug Allergies Allergy Verified 03/20/24 08:10 Review of Systems Review of Systems ROS: Yes All systems reviewed with the patient and are negative except as otherwise documented Exam Vital Signs (past 8 hours): - 03/20/24 08:33 Temperature 97.3 F L Pulse Rate 89 Respiratory Rate 16 Blood Pressure 133/70 Pulse Oximetry 98 Oxygen Delivery Method Room Air Oxygen Delivery Method Room Air Narrative Exam Narrative: Gen: NAD, sitting comfortably in bed, appears well HEENT: Sclera are anicteric, head is normocephalic and atraumatic, trachea is midline. CV: RRR, no JVD Resp: clear to auscultation bilaterally, equal chest wall movement bilaterally Abd: soft, nontender, normoactive bowel sounds Ext: no edema, full range of motion Neuro: Cranial nerves II-XII grossly intact, no focal deficits Skin: No erythema or ecchymosis Assessment & Plan Assessment and plan (1) Colon cancer screening: Status: Acute Time-Based Coding :: [TOTAL MINUTES] spent with patient and on the chart (including review of chart, obtaining history, exam, reviewing outside data, placing orders, documenting exam and treatment plan, and counseling patient) on [DATE].
--- NOTE | 2024-03-20 09:01 | PM.OP.COLON ---
Operative Date/Time/Diagnoses Date of procedure: 03/20/24 Time of procedure: 09:01 Pre-op diagnosis: Colon screening Post-op diagnosis: other (Circumferentially obstructing rectal mass approximately 10 cm from the anal verge) Procedure & Clinicians Study performed: Flexible sigmoidoscopy with biopsy and tattoo Same procedure as scheduled: No (Colonoscopy aborted due to obstructing rectal mass) Indications: Colon screening Surgeon: Bry Aguirre Procedure Notes SCOAP/Timeout: Performed Procedure in detail: Time-out was performed. Mac was induced. Patient was placed in left lateral decubitus position. The perineum was inspected without any gross abnormality. Lubricated adult colonoscope was inserted and advanced to a circumferentially obstructing rectal lesion approximately 10 cm from the anal verge. This was not palpable at the end of my finger on rectal exam. This was switched to a pediatric colonoscope, however the lumen was not able to be traversed. Multiple biopsies were taken of the mass. The mass was firm and friable. Carbon black was injected 2 cm distal to the mass on the anterior and posterior aspects of the rectum.. The colonoscope was withdrawn slowly inspecting the circumference of the rectum. Very small polyps may have been missed, prep quality was adequate. Retroflexed view of the rectum showed small, non prolapsed nonbleeding internal hemorrhoids. The scope was withdrawn the patient was taken to PACU in good condition. Scope withdrawal time: NA Sedation minutes: 14 Findings: possible cancer (Circumferentially obstructing rectal lesion 10 cm from the anal verge) Specimen(s): other (Biopsy rectal mass at 10 cm) Complications: none Impression: Malignant appearing rectal mass Post-procedure Recommendations: Other recommendation(s) (Referral to Colorectal surgery at [facility]) Follow up: as needed Disposition: PACU
--- NOTE | 2024-03-20 09:10 | SUR.PHASEI ---
Report given to Nia
[2024-03-20 09:35] LABS: Add Manual Diff / Slide Review NO; Basophils Absolute Auto 0 /uL (0-100); Basophils Percent Auto 0.3 % (0-2); Eosinophils Absolute Auto 100 /uL (0-450); Eosinophils Percent Auto 1.4 % (2-4); Hematocrit 35.6 % (41-53); Hemoglobin 11.9 g/dL (13.5-17.5); Lymphocytes Absolute Auto 500 /uL (1100-4500); Lymphocytes Percent Auto 13.7 % (25-40); Mean Corpuscular HGB Conc 33.3 % (30-36); Mean Corpuscular Hemoglobin 30.6 PG (26-34); Mean Corpuscular Volume 92.1 fL (80-100); Monocytes Absolute Auto 300 /uL (0-900); Monocytes Percent Auto 8.2 % (3-14); Neutrophils Absolute Auto 2900 /uL (1500-7000); Neutrophils Percent Auto 76.4 % (50-75); Platelet Count 186 X10^3/uL (150-400); Red Blood Cell Count 3.87 X10^6/uL (4.5-5.9); Red Cell Distribution Width 14.1 % (11.6-14.8); White Blood Cell Count 3.7 X10^3/uL (4.5-11.0)
[2024-03-20 09:50] LABS: Alanine Aminotransferase 19 IU/L (<50); Albumin 3.2 g/dL (3.5-5.0); Albumin Globulin Ratio 1.5 (1.0-2.8); Alkaline Phosphatase 79 U/L (38-126); Aspartate Aminotransferase 22 IU/L (17-59); BUN Creatinine Ratio 11.4 (6-22); Bilirubin Total 0.5 mg/dL (0.2-1.3); Blood Urea Nitrogen 9 mg/dL (9-20); Calcium 7.8 mg/dL (8.4-10.2); Carbon Dioxide 23 mmol/L (22-32); Chloride 111 mmol/L (98-107); Estimated Glomerular Filt Rate > 60 mL/min (>60); Globulin 2.2 g/dL (1.7-4.1); Glucose 102 mg/dL (80-110); HEMOLYSIS < 15 (0-50); Potassium 3.2 mmol/L (3.4-5.1); Sodium 140 mmol/L (137-145); Total Protein 5.4 g/dL (6.3-8.2)
[2024-03-20 10:21] LABS: Carcinoembryonic Antigen 1.7 ng/mL (0.1-3.0)
--- NOTE | 2024-03-20 11:40 | SUR.PHASEII ---
Discharge instructions clarified with Dr. Aguirre. Full liquid diet recommended if patient is having constipation or symptoms of obstruction - otherwise regular diet is okay. Referral to colorectal surgeon at [facility] will be placed per Dr. Aguirre.
== END 2024-03-20 11:40 | disposition home or self-care (01) ==
PROVIDERS: PCP Family Medicine; Referring Provider Surgery; Visit Provider Surgery
PROC: 0DJD8ZZ Inspection of Lower Intestinal Tract, Via Natural or Artificial Opening Endoscopic (ICD-10-PCS; CPT 45378; principal; 2024-03-20 08:45)
DX: K62.5 Hemorrhage of anus and rectum (principal); C20 Malignant neoplasm of rectum; Z87.891 Personal history of nicotine dependence; Z86.0100 Personal history of colon polyps, unspecified
CPT/HCPCS: 45305; 71260; 74177; 80053; 82378; 85025; J2704; Q9967

== ENCOUNTER → 2024-03-21 12:46 | Outpatient (CLI) | payer MEDICARE, SELFPAY ==
[2024-03-21 17:00] LABS: Add Manual Diff / Slide Review NO; Basophils Absolute Auto 0 /uL (0-100); Basophils Percent Auto 0.3 % (0-2); Eosinophils Absolute Auto 0 /uL (0-450); Eosinophils Percent Auto 0.7 % (2-4); Hematocrit 40.2 % (41-53); Hemoglobin 13.4 g/dL (13.5-17.5); Lymphocytes Absolute Auto 1000 /uL (1100-4500); Lymphocytes Percent Auto 17.7 % (25-40); Mean Corpuscular HGB Conc 33.4 % (30-36); Mean Corpuscular Hemoglobin 30.7 PG (26-34); Mean Corpuscular Volume 92.1 fL (80-100); Monocytes Absolute Auto 400 /uL (0-900); Monocytes Percent Auto 7.5 % (3-14); Neutrophils Absolute Auto 4000 /uL (1500-7000); Neutrophils Percent Auto 73.8 % (50-75); Platelet Count 211 X10^3/uL (150-400); Red Blood Cell Count 4.36 X10^6/uL (4.5-5.9); Red Cell Distribution Width 14.1 % (11.6-14.8); White Blood Cell Count 5.4 X10^3/uL (4.5-11.0)
[2024-03-21 17:17] LABS: HEMOLYSIS < 15 (0-50); Potassium 3.6 mmol/L (3.4-5.1)
[2024-03-21 17:18] LABS: Alanine Aminotransferase 25 IU/L (<50); Albumin 3.9 g/dL (3.5-5.0); Albumin Globulin Ratio 1.5 (1.0-2.8); Alkaline Phosphatase 84 U/L (38-126); Aspartate Aminotransferase 27 IU/L (17-59); BUN Creatinine Ratio 11.8 (6-22); Bilirubin Total 0.3 mg/dL (0.2-1.3); Blood Urea Nitrogen 10 mg/dL (9-20); Calcium 8.8 mg/dL (8.4-10.2); Carbon Dioxide 26 mmol/L (22-32); Chloride 105 mmol/L (98-107); Estimated Glomerular Filt Rate > 60 mL/min (>60); Globulin 2.6 g/dL (1.7-4.1); Glucose 141 mg/dL (80-110); Sodium 138 mmol/L (137-145); Total Protein 6.5 g/dL (6.3-8.2)
== END ==
PROVIDERS: PCP Family Medicine; Referring Provider Family Medicine; Visit Provider Family Medicine
DX: K86.89 Other specified diseases of pancreas (principal); C18.9 Malignant neoplasm of colon, unspecified; K63.89 Other specified diseases of intestine
CPT/HCPCS: 36415; 80053; 82105; 82378; 85025; 86301; 86304

== ENCOUNTER → 2024-03-22 17:06 | Outpatient (CLI) | payer MEDICARE, SELFPAY ==
--- NOTE | 2024-03-22 17:07 | DI.MRI.S_ITS ---
PROCEDURE: MR AB PANCREATIC/MRCP PROTOCOL INDICATIONS: tail of pancrease mass TECHNIQUE: Coronal HASTE through the abdomen, axial 2-D FLASH in- and [id number], and breath-hold T2 FSE with fat saturation through the biliary system and pancreas. Oblique coronal and axial thin-slice HASTE, radial thick-slab HASTE centered on the extrahepatic bile ducts. Intravenous secretin: Not requested. COMPARISON: [facility], CT, CT CHEST ABD PEL W CON, 03/20/2024, 10:23. FINDINGS: Image quality: Diagnostic. Gallbladder: Cholelithiasis without wall thickening or adjacent fat stranding to suggest acute cholecystitis. Biliary ducts: No biliary dilation. Pancreas: Pancreatic divisum. No ductal dilation. 8 mm T2 hyperintense cystic lesion in the tail of the pancreas (series 5, image 15). In the tail of the pancreas, there is a 1.3 cm T1 isointense, T2 intermediate lesion which follows similar enhancing properties of the spleen (series 13, image 37). OTHER: Lung bases: Large hiatal hernia. Liver: No solid mass. Spleen: Size is within normal limits. Adrenal Glands: No adrenal nodules. Kidneys and Ureters: No hydronephrosis. No solid mass. No complex renal cystic lesion which requires follow up. Stomach and Bowel: Normal colonic caliber, without significant wall thickening. Peritoneum: No abnormal intraperitoneal fluid. No free air. Ventral Wall: No hernia. Abdominal Nodes: No retroperitoneal or mesenteric adenopathy by size criteria. Vessels: Aorta and inferior vena cava are normal in size. Bones: No aggressive osseous abnormality. IMPRESSION: The solid-appearing mass in the tail of the pancreas imaging enhancement characteristics similar to the adjacent spleen. 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 If necessary, this could be confirmed with complete certainty with a tagged red blood cell nuclear medicine examination, versus GI referral for endoscopic evaluation, EUS/FNA, with greater bleeding risk. Alternatively, this could be followed with sequential oncology staging scans. No liver metastases. 7 mm T2 hyperintense cystic lesion in the tail of the pancreas, likely a side branch IPMN. Attention on follow-up. Cholelithiasis without wall thickening or adjacent fat stranding to suggest acute cholecystitis. Dictated by: Durga Thakkar M.D. on 03/23/2024 at 9:23 Approved by: Durga Thakkar M.D. on 03/23/2024 at 9:32
== END ==
PROVIDERS: PCP Family Medicine; Referring Provider Family Medicine; Visit Provider Family Medicine
DX: K63.89 Other specified diseases of intestine (principal); K86.89 Other specified diseases of pancreas; K80.20 Calculus of gallbladder without cholecystitis without obstruction; K44.9 Diaphragmatic hernia without obstruction or gangrene
CPT/HCPCS: 74183; A9579

== ENCOUNTER → 2024-04-07 13:13 | Outpatient (CLI) | payer MEDICARE, SELFPAY ==
--- NOTE | 2024-04-07 13:14 | DI.MRI.S_ITS ---
PROCEDURE: MR PELIS WO/W CON INDICATIONS: rectal protocol for colon CA staging TECHNIQUE: Coronal HASTE, sagittal T2 FSE, axial T1 FSE, axial and coronal nonbreath-hold T2 FSE. Axial dynamic VIBE during administration of contrast. Post-contrast axial and coronal VIBE/2-D FLASH with fat saturation from the iliac crests to the symphysis. Optional diffusion weighted imaging and ADC may be performed. COMPARISON: None. FINDINGS: Image quality: Suboptimal. Due to tumor position, the entire tumor was not completely visualized on some bustillos sequences. Staging may be inaccurate.. Rectum: Morphology: Circumferential Clock face of tumor involvement: 360? Mucinous (high T2 signal): No Craniocaudal length: About 5.5 cm. Distance to anal verge: About 11.5 cm. Distance to top of sphincter complex/anorectal junction: About 9.3 cm. Relationship to anterior peritoneal reflection: Above Tumor at or below puborectalis sling: No T staging: T3c. There is invasion of the muscularis propria, predominantly along the right lateral margin of the proximal end. There are spiculations in the adjacent fat and possible nodular extramural extension measuring roughly 6-7 mm. Depth of extramural invasion: About 6-7 mm. Extramural vascular invasion: None. T3 tumors only: distance to mesorectal fascia (circumferential resection margin): 6 mm. Pelvic organ involvement: Genitourinary: None. Pelvic sidewall (obturator internus, piriformis, ischiococcygeus muscles): No Pelvic floor (pubococcygeus, iliococcygeus, puborectalis, levator plate): No Sacrum: No Vessels (internal and external iliac arteries and veins): No Nerves (lumbosacral nerve roots): No Regional lymph nodes (mesorectal, inguinal, iliac): No Other bowel and peritoneum: No pathologic free pelvic fluid. More proximal colon and small bowel loops are normal in caliber. Bones: Marrow is normal in overall signal. IMPRESSION: Incomplete visualization of the entire tumor on small [id number] oblique axial T2 imaging. It is uncertain if this would affect staging. 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 No lymphadenopathy. Dictated by: Robina Washington M.D. on 04/18/2024 at 9:14 Approved by: Robina Washington M.D. on 04/18/2024 at 9:43
== END ==
PROVIDERS: PCP Family Medicine; Referring Provider Family Medicine; Visit Provider Family Medicine
DX: C18.9 Malignant neoplasm of colon, unspecified (principal); K63.89 Other specified diseases of intestine; K86.89 Other specified diseases of pancreas; C20 Malignant neoplasm of rectum
CPT/HCPCS: 72197; A9579

== ENCOUNTER 2024-07-22 16:22 | Observation (INO) | payer MEDICARE, SELFPAY ==
[2024-07-22] VITALS (18 sets, daily range): BP systolic 114–147; BP diastolic 59–72; PULSE 94–118; RESP 16–20; TEMP 36.8–37.9; O2SAT 94–100; BMI 19.6
--- NOTE | 2024-07-22 16:36 | DI.RAD.S_ITS ---
PROCEDURE: XR CHEST 1V INDICATIONS: suspected sepsis TECHNIQUE: One view of the chest was acquired. COMPARISON: [facility], CR, XR CHEST 2V, 10/07/2021, 10:39. FINDINGS: Surgical changes and devices: Right chest wall port tip projects over the low SVC. Lungs and pleura: Streaky left basilar atelectasis. No pleural effusions or pneumothorax. Mediastinum: Mediastinal contours appear normal. Heart size is normal. Moderate hiatal hernia. Bones and chest wall: No suspicious bony lesions. Overlying soft tissues appear unremarkable. IMPRESSION: No acute cardiopulmonary abnormality is seen. Dictated by: Durga Thakkar M.D. on 07/22/2024 at 17:02 Approved by: Durga Thakkar M.D. on 07/22/2024 at 17:02
[2024-07-22 16:51] LABS: Hematocrit 38.4 % (41-53); Hemoglobin 13.4 g/dL (13.5-17.5); Mean Corpuscular HGB Conc 34.8 % (30-36); Mean Corpuscular Volume 89.2 fL (80-100); Platelet Count 120 X10^3/uL (150-400); Red Cell Distribution Width 15.2 % (11.6-14.8)
[2024-07-22 16:52] LABS: INR 1.2 (0.9-1.3); Prothrombin Time 14.1 SECONDS (9.4-12.5)
[2024-07-22 16:55] LABS: PTT Partial Thromboplastin Tim 35 SECONDS (25.1-36.5); White Blood Cell Count 1.9 X10^3/uL (4.5-11.0)
[2024-07-22] MEDS: SODIUM CHLORIDE 0.9% 1,000 ML 1000 ML IV ×2 (16:55→19:51)
[2024-07-22 16:56] LABS: Add Manual Diff / Slide Review YES
[2024-07-22 17:03] LABS: Lactate (Lactic Acid) 1.5 mmol/L (0.7-2.1)
[2024-07-22 17:04] LABS: Alanine Aminotransferase 111 IU/L (<50); Albumin 3.4 g/dL (3.5-5.0); Albumin Globulin Ratio 1.1 (1.0-2.8); Alkaline Phosphatase 115 U/L (38-126); Aspartate Aminotransferase 87 IU/L (17-59); BUN Creatinine Ratio 17.2 (6-22); Bilirubin Total 0.7 mg/dL (0.2-1.3); Blood Urea Nitrogen 15 mg/dL (9-20); Calcium 8.2 mg/dL (8.4-10.2); Carbon Dioxide 25 mmol/L (22-32); Chloride 101 mmol/L (98-107); Estimated Glomerular Filt Rate > 60 mL/min (>60); Glucose 120 mg/dL (70-99); HEMOLYSIS < 15 (0-50); Lipase 51 U/L (23-300); Potassium 3.3 mmol/L (3.4-5.1); Sodium 132 mmol/L (137-145); Total Protein 6.4 g/dL (6.3-8.2)
--- NOTE | 2024-07-22 17:17 | PC.NURSE ---
pt and pt report intermittent diarrhea ongoing one month, worse after chemo treatments. pt reports approx 2-3 watery BMs per day, sometimes uncontrollable where pt can't make it bathroom in time. This nurse placed BSC at pt bed just in case an urgent bout of diarrhea occurs, offered pt to wear absorbent brief/pullup but pt declined. Told pt to call if feeling need to use BSC so we can assist. pt/ agreed
[2024-07-22 17:21] LABS: Procalcitonin 0.066 ng/mL (<0.5)
[2024-07-22 17:31] LABS: Neutrophils Absolute Manual 1045 /uL (3000-5900); Total Cells Counted 100
[2024-07-22 17:32] LABS: RBC Morphology Normal Morphology
--- NOTE | 2024-07-22 19:03 | ED.NAVMDI ---
HPI - Nausea/Vomiting/Diarrhea General Chief complaint: Nausea/Vomiting/Diarrhea Stated complaint: diarrehea, fever - chemo therapy Time Seen by Provider: 07/22/24 17:18 History of Present Illness HPI Narrative: Patient is a 78-year-old male with diagnosis of rectal adenocarcinoma stage III T3 N0 M0 currently getting chemo therapy on FOLFOX followed by [facility] presenting today with fever of 100.5. states that he was shaking and chilled she took his temperature drawn 3:00 a.m. and it was 100.5 at which point she brought him immediately to the emergency department. He was not given Tylenol. He is afebrile here. He continues to have diarrhea which is side effect of chemotherapy. He was got 2-3 episodes today. No significant abdominal pain no cough no sore throat. He is staying hydrated but has a decrease in appetite. Nausea is tolerable right now. Related Data Home Medications Medication Instructions Recorded Confirmed No Known Home Medications 07/22/24 07/22/24 Allergies Allergy/AdvReac Type Severity Reaction Status Date / Time No Known Drug Allergies Allergy Verified 07/12/24 08:27 Patient History Medical History Colon cancer screening Localized pruritus Mild anemia Fatigue Hemorrhoids Hepatitis A Jaundice due to hepatitis (1971) Chicken pox GERD (gastroesophageal reflux disease) (~1989) Hearing loss (~1999) Measles Mumps Toe fracture, right (2013) Surgical History Anesthesia History of rectal surgery (1997) Status post colonoscopy (2008) Family History Father Brain tumor Stroke Mother Bowel obstruction Cancer Sister No problems noted. Social History marital status: household members: spouse occupational status: previously employed Smoking Status: Former smoker alcohol intake: current substance use type: does not use alcohol intake frequency: 0-2 drinks per day Exam Initial Vital Signs Initial Vital Signs: Vital Signs Pulse Rate 118 H 07/22/24 16:29 Pulse Oximetry 100 07/22/24 16:29 GENERAL: Alert week 78-year-old male and in no acute distress. HEENT: Head atraumatic,EOMI, pupils reactive, face symmetric, drymucous membranes PHARYNX: No erythema, no tonsillar exudate, no cervical lymphadenopathy CARDIOVASCULAR: Regular rate and rhythm without murmurs, rubs or gallops. RESPIRATORY: Breath sounds equal bilaterally, no wheezes rales or rhonchi. ABDOMEN: Soft, nontender. Normoactive bowel sounds all 4 quadrants. No guarding or rebound. : No CVA tenderness EXTREMITIES: Normal range of motion, no clubbing or edema. Neurovascularly intact NEUROLOGICAL: Alert and oriented x4.Normal gait and speech. Cranial nerves II through XII grossly intact. SKIN: Warm, dry, no laceration, no petechiae, no rashes or lesions. Course Orders Ordered: ED Orders 07/22/24 19:57 Covid-19 + FLU A/B + RSV - PCR Stat 07/22/24 20:18 Urinalysis and Microscopic Stat Acetaminophen (Acetaminophen 325 Mg Tablet) 650 mg PO Q6H PRN PRN Reason: Fever/Mild Pain (1-3) Al Hydrox/Mg Hydrox/Simethicone (Mag Hydrox/Alum/Simeth 30 Ml Udc) 30 ml PO Q6HR PRN PRN Reason: Dyspepsia Enoxaparin Sodium (Enoxaparin 40 Mg/0.4 Ml Syringe) 40 mg SUBCUT DAILY ELIJAH Sodium Chloride (Normal Saline 0.45%) 1,000 mls @ 100 mls/hr IV CONT ELIJAH Last Admin: 07/23/24 00:37 Dose: 100 mls/hr Documented By: MS Piperacillin Sod/Tazobactam (Sod 3.375 gm/ Sodium Chloride) 100 mls @ 25 mls/hr IV Q8H ELIJAH Last Admin: 07/23/24 00:38 Dose: 25 mls/hr Documented By: MS Naloxone HCl (Naloxone 0.4 Mg/Ml Vial) 0.2 mg IV Q2MIN PRN PRN Reason: Opiate Reversal Ondansetron HCl (Ondansetron 4 Mg/2 Ml Inj) 4 mg IV Q8HR PRN PRN Reason: Nausea And Vomiting Sodium Chloride (Sodium Chloride 0.9% Flush) 10 ml IV PRN PRN PRN Reason: Flush Sodium Chloride (Sodium Chloride 0.9% Flush) 10 ml IV BID ELIJAH Discontinued Medications Sodium Chloride (Normal Saline 0.9%) 1,000 mls @ 1,000 mls/hr IV BOLUS ONE Stop: 07/22/24 17:35 Last Infusion: 07/22/24 18:07 Dose: Infused Documented By: JOSE E Admin: 07/22/24 16:55 Dose: 1,000 mls/hr Documented By: JOSE E Piperacillin Sod/Tazobactam (Sod 4.5 gm/ Sodium Chloride) 100 mls @ 200 mls/hr IV NOW ONE Stop: 07/22/24 19:00 Last Infusion: 07/22/24 20:11 Dose: Infused Documented By: Admin: 07/22/24 19:07 Dose: 200 mls/hr Documented By: SB Sodium Chloride (Normal Saline 0.9%) 1,000 mls @ 1,000 mls/hr IV BOLUS ONE Stop: 07/22/24 20:13 Last Infusion: 07/22/24 20:30 Dose: Infused Documented By: JOSE E Admin: 07/22/24 19:51 Dose: 1,000 mls/hr Documented By: JOSE E Vancomycin HCl (Vancomycin) 1,250 mg in 250 mls @ 166.667 mls/hr IV NOW ONE Stop: 07/22/24 23:29 Last Admin: 07/22/24 22:23 Dose: 250 mls/hr Documented By: MS Sodium Chloride (Normal Saline 0.9%) 1,000 mls @ 100 mls/hr IV CONT ELIJAH Last Admin: 07/22/24 22:23 Dose: 100 mls/hr Documented By: Piperacillin Sod/Tazobactam (Sod 4.5 gm/ Sodium Chloride) 100 mls @ 25 mls/hr IV Q8H [facility] Ondansetron HCl (Ondansetron 4 Mg/2 Ml Inj) 4 mg IV NOW PRN PRN Reason: Nausea And Vomiting Ondansetron HCl (Ondansetron 4 Mg Odt) 4 mg PO NOW PRN PRN Reason: Nausea And Vomiting Vital Signs Vital signs: Vital Signs - 8 hr 07/22/24 19:57 07/22/24 20:00 07/22/24 20:30 Temperature 99.2 F Pulse Rate 104 H 108 H Respiratory Rate Blood Pressure Pulse Oximetry 97 95 07/22/24 21:00 07/22/24 21:09 07/22/24 21:09 Temperature Pulse Rate 104 H 107 H Respiratory Rate 16 Blood Pressure 133/63 Pulse Oximetry 95 99 MDM - Nausea/Vomiting/Diarrhea Lab Data 07/22/24 16:36 07/22/24 16:36 Labs: Lab Results 07/22/24 07/22/24 07/22/24 Range/Units 16:36 19:57 20:18 WBC 1.9 L* (4.5-11.0) X10^3/uL RBC 4.30 L (4.5-5.9) X10^6/uL Hgb 13.4 L (13.5-17.5) g/dL Hct 38.4 L (41-53) % MCV 89.2 (80-100) fL MCH 31.0 (26-34) PG MCHC 34.8 (30-36) % RDW 15.2 H (11.6-14.8) % Plt Count 120 L (150-400) X10^3/uL Neut % (Auto) Not Reportable Lymph % (Auto) Not Reportable [place] % (Auto) Not Reportable Eos % (Auto) Not Reportable Baso % (Auto) Not Reportable Lymph # (Auto) Not Reportable [place] # (Auto) Not Reportable Baso # (Auto) Not Reportable Total Counted 100 Seg Neutrophils % 55.0 (38-70) % Lymphocytes % (Manual) 39.0 (25-45) % Monocytes % (Manual) 3.0 (2-11) % Eosinophils % (Manual) 3.0 (2-4) % Neutrophils # (Manual) 1045 L (4521-6582) /uL RBC Morphology Normal morphology PT 14.1 H (9.4-12.5) SECONDS INR 1.2 (0.9-1.3) APTT 35 (25.1-36.5) SECONDS Sodium 132 L (137-145) mmol/L Potassium 3.3 L (3.4-5.1) mmol/L Chloride 101 (98-107) mmol/L Carbon Dioxide 25 (22-32) mmol/L BUN 15 (9-20) mg/dL Creatinine 0.87 (0.66-1.25) mg/dL Estimated GFR > 60 (>60) mL/min BUN/Creatinine Ratio 17.2 (6-22) Glucose 120 H (70-99) mg/dL Lactate 1.5 (0.7-2.1) mmol/L Calcium 8.2 L (8.4-10.2) mg/dL Total Bilirubin 0.7 (0.2-1.3) mg/dL AST 87 H (17-59) IU/L ALT 111 H (<50) IU/L Alkaline Phosphatase 115 (38-126) U/L Total Protein 6.4 (6.3-8.2) g/dL Albumin 3.4 L (3.5-5.0) g/dL Globulin 3.0 (1.7-4.1) g/dL Albumin/Globulin Ratio 1.1 (1.0-2.8) Lipase 51 (23-300) U/L Procalcitonin 0.066 (<0.5) ng/mL Urine Color Yellow Urine Appearance Clear Urine pH 5.5 (4.5-8.0) Ur Specific [place] 1.020 (1.000-1.035) Urine Protein Negative (Negative) Urine Glucose (UA) Negative (Negative) g/dL Urine Ketones 1+ H (NEGATIVE) Urine Occult Blood Negative (Negative) Urine Nitrate Negative (Negative) Urine Bilirubin Negative (NEGATIVE) Urine Urobilinogen 1.0 (0.2) E.U./dL Ur Leukocyte Esterase Negative (NEGATIVE) Urine RBC None seen (0-5/HPF) Urine WBC None seen (0-5/HPF) Ur Squamous Epith Cells None seen (0-5/HPF) Urine Bacteria None seen (None) Ur Culture Indicated? Cult not indicated Vol Urine Centrifuged 10ml (spun) SARS-CoV-2 (PCR) Negative (Negative) Influenza A (RT-PCR) Flu a negative (NEGATIVE) Influenza B (RT-PCR) Flu b negative (NEGATIVE) RSV (PCR) Negative (Negative) Urine Dip Bedside Urine Glucose Negative Bedside Urine Bilirubin - Negative Bedside Urine Ketone + 15 Urine Specific [place] 1.020 Bedside Urine Occult Blood - Negative Bedside Urine pH 6.0 Bedside Urine Protein - Negative Bedside Urine Urobilinogen - Negative Bedside Urine Nitrite - Negative Bedside Urine Leukocytes - Negative Esterase Imaging Data Chest x-ray: Radiologist's Impression: PROCEDURE: XR CHEST 1V INDICATIONS: suspected sepsis TECHNIQUE: One view of the chest was acquired. COMPARISON: [facility], , XR CHEST 2V, 10/07/2021, 10:39. FINDINGS: Surgical changes and devices: Right chest wall port tip projects over the low SVC. Lungs and pleura: Streaky left basilar atelectasis. No pleural effusions or pneumothorax. Mediastinum: Mediastinal contours appear normal. Heart size is normal. Moderate hiatal hernia. Bones and chest wall: No suspicious bony lesions. Overlying soft tissues appear unremarkable. IMPRESSION: No acute cardiopulmonary abnormality is seen. Dictated by: Durga Thakkar M.D. on 07/22/2024 at 17:02 MDM Narrative Medical decision making narrative: MDM CC: Fever Complicating co-morbidities: Colorectal cancer currently on FOLFOX followed by [facility] Data collected from: Patient and Medical records reviewed: CT chest abdomen pelvis from 03/20/2024 does show a pancreatic mass as well Differential considered: Neutropenic fever sepsis Exam documented above, pertinent findings include: Dry mucous membranes weak alert abdomen soft breath sounds clear Lab Test results independently reviewed as above. Pertinent findings: WBC 1.9 neutrophils 1045 lactate 1.5 Sodium 132 potassium 3.3 chloride 101 carbon dioxide 25 BUN 15 creatinine 0.87 AST 85 ALT 111 alk-phos 115 Urinalysis negative for infection Viral panel negative Imaging studies independently reviewed: Chest x-ray no acute cardiopulmonary process Consultations: 1920 Marline, on-call oncologist updated patient's symptoms test results. Does recommend that with neutrophils being low and elderly age along with recent chemotherapy recommends keeping in hospital to monitor which way neutrophils are going to go and blood cultures Dr. Rosas updated on patient's symptoms test results accepts Treatments: IV fluids Zosyn vancomycin Re-evaluations: Patient overall remains hemodynamically stable no concern for severe sepsis Discussion: 78-year-old male currently undergoing chemotherapy for colorectal cancer presenting today with fever at home of 100.5 which sounds like rigors as well. No obvious source. He was quite neutropenic but neutrophils are low at 1045. Abdomen is soft breath sounds are clear and equal. Recommendations of our [facility] ER noted that patient be observed to monitor blood work. Patient he was agreeable to this along with his . Abdomen is soft no real need to do repeat CT scanning at this time. Given Zosyn and vancomycin empirically for antibiotics. It remains afebrile here in the ED Discharge Plan Departure Patient Disposition: Admitted as Observation Clinical Impression: Fever and neutropenia Admit Date/Time: 07/22/24 21:15 Admit Provider: Carlos Briseno
[2024-07-22] MEDS: PIPERACILLIN/TAZO 4.5 GM in SODIUM CHLORIDE 0.9% 100 ML IV (19:07)
[2024-07-22 20:35] LABS: Influenza A - CEPHEID Flu A NEGATIVE (NEGATIVE); Influenza B - CEPHEID Flu B NEGATIVE (NEGATIVE); Respiratory Syncytial Virus Negative (Negative)
[2024-07-22 20:40] LABS: Appearance Urine UA CLEAR; Bilirubin Urine UA NEGATIVE (NEGATIVE); Color Urine UA YELLOW; Glucose Urine UA NEGATIVE (Negative); Ketones Urine UA 1+ (NEGATIVE); Leukocyte Esterase Urine UA NEGATIVE (NEGATIVE); Nitrite Urine UA NEGATIVE (Negative); Occult Blood Urine UA NEGATIVE (Negative); Protein Urine UA NEGATIVE (Negative); pH Urine UA 5.5 (4.5-8.0)
[2024-07-22 20:44] LABS: COVID-19 CEPHEID 4-PLEX PCR Negative (Negative)
[2024-07-22 20:56] LABS: Bacteria Urine None Seen; Culture Indicated Urine Cult Not Indicated; RBC Urine None Seen (0-5/HPF); Squamous Epithelial Cell Urine None Seen (0-5/HPF); Urine Volume 10mL (spun); WBC Urine None Seen (0-5/HPF)
[2024-07-22] MEDS: SODIUM CHLORIDE 0.9% 1,000 ML 100 ML IV (22:23)
[2024-07-22] MEDS: VANCOMYCIN 1,250 MG/250 ML PIGGYBACK 250 MG IV (22:23)
[2024-07-23] MEDS: SODIUM CHLORIDE 0.45% 1,000 ML 100 ML IV (00:37)
[2024-07-23] MEDS: PIPERACILLIN/TAZO 3.375 GM in SODIUM CHLORIDE 0.9% 100 ML IV ×3 (00:38→17:27)
[2024-07-23 05:29] LABS: Add Manual Diff / Slide Review NO; Basophils Absolute Auto 0 /uL (0-100); Basophils Percent Auto 0.3 % (0-2); Eosinophils Absolute Auto 0 /uL (0-450); Eosinophils Percent Auto 0.4 % (2-4); Hematocrit 31.2 % (41-53); Lymphocytes Absolute Auto 400 /uL (1100-4500); Lymphocytes Percent Auto 20.5 % (25-40); Mean Corpuscular HGB Conc 35.3 % (30-36); Mean Corpuscular Hemoglobin 31.2 PG (26-34); Mean Corpuscular Volume 88.3 fL (80-100); Monocytes Absolute Auto 100 /uL (0-900); Monocytes Percent Auto 2.8 % (3-14); Neutrophils Absolute Auto 1600 /uL (1500-7000); Platelet Count 76 X10^3/uL (150-400); Red Blood Cell Count 3.54 X10^6/uL (4.5-5.9); White Blood Cell Count 2.1 X10^3/uL (4.5-11.0)
[2024-07-23 05:37] LABS: Alanine Aminotransferase 96 IU/L (<50); Albumin 2.6 g/dL (3.5-5.0); Albumin Globulin Ratio 1.1 (1.0-2.8); Alkaline Phosphatase 93 U/L (38-126); Aspartate Aminotransferase 80 IU/L (17-59); BUN Creatinine Ratio 13.6 (6-22); Bilirubin Total 0.8 mg/dL (0.2-1.3); Blood Urea Nitrogen 11 mg/dL (9-20); Carbon Dioxide 18 mmol/L (22-32); Chloride 103 mmol/L (98-107); Estimated Glomerular Filt Rate > 60 mL/min (>60); Globulin 2.4 g/dL (1.7-4.1); Glucose 100 mg/dL (70-99); HEMOLYSIS < 15 (0-50); Potassium 2.8 mmol/L (3.4-5.1); Sodium 127 mmol/L (137-145)
[2024-07-23 07:00] VITALS: O2SAT 92
[2024-07-23 08:00] VITALS: BP 102/49; PULSE 84; RESP 18; TEMP 36.9; O2SAT 95
[2024-07-23 08:25] LABS: Adenovirus F 40/41 Not Detected (Not Detect); Astrovirus Not Detected (Not Detect); Campylobacter Not Detected (Not Detect); Clostridium difficile toxin AB Not Detected (Not Detect); Cryptosporidium Not Detected (Not Detect); Cyclospora cayetanensis Not Detected (Not Detect); Entamoeba histolytica Not Detected (Not Detect); Enteroaggregative E.coli Not Detected (Not Detect); Enteropathogenic E.coli Not Detected (Not Detect); Enterotoxigenic E.coli It/st Not Detected (Not Detect); Giardia lamblia Not Detected (Not Detect); Norovirus GI/GII Not Detected (Not Detect); Plesiomonsa shigelloides Not Detected (Not Detect); Rotavirus A Not Detected (Not Detect); Salmonella Not Detected (Not Detect); Sapovirus Not Detected (Not Detect); Shiga-like toxin-prod E.coli Not Detected (Not Detect); Shigella/Enteroinvasive E.coli Not Detected (Not Detect); Vibrio Not Detected (Not Detect); Vibrio cholerae Not Detected (Not Detect); Yersinia enterocolitica Not Detected (Not Detect)
--- NOTE | 2024-07-23 08:30 | PM.HP.IH.1 ---
History of Present Illness History of Present Illness Date Patient Seen: 07/23/24 Chief complaint: diarrhea, fever - chemo therapy Narrative: 78-year-old male with rectal carcinoma stage III patient getting chemotherapy and soon to be radiation. He received chemotherapy at [facility]. Patient is receiving FLOWFOX. Patient states he has been doing well feeling weak having a lot of diarrhea with his chemotherapy treatment. He yesterday afternoon patient began to have chills rigors and a low-grade temperature. His was immediately concerned and brought him to the emergency department for evaluation. Patient describes ongoing weakness no cough no respiratory distress. Patient has had symptoms of increasing watery stools which he thinks is consistent with being on chemotherapy. He has poor appetite. No urinary symptoms such as burning. Patient says he is not sleeping well. Especially here in the hospital. He is not having any particular pain. [facility] Medical History Colon cancer screening Localized pruritus Mild anemia Fatigue Hemorrhoids Hepatitis A Jaundice due to hepatitis (1971) Chicken pox GERD (gastroesophageal reflux disease) (~1989) Hearing loss (~1999) Measles Mumps Toe fracture, right (2013) Surgical History Anesthesia History of rectal surgery (1997) Status post colonoscopy (2008) Family History Father Brain tumor Stroke Mother Bowel obstruction Cancer Sister No problems noted. Social History marital status: household members: spouse occupational status: previously employed Smoking Status: Former smoker alcohol intake: current substance use type: does not use Meds Home Medications and Allergies Home Medications Medication Instructions Recorded Confirmed Type No Known Home Medications 07/22/24 07/22/24 History Allergies Allergy/AdvReac Type Severity Reaction Status Date / Time No Known Drug Allergies Allergy Verified 07/12/24 08:27 Exam Vital Signs (past 8 hours): Oxygen Delivery Method Room Air Oxygen Flow Rate 0 Narrative Exam Narrative: Gen.: Alert good historian hard of hearing HEENT: Pupils equal round and reactive or mucosa is dry neck is supple Cardio: S1-S2 regular rate and rhythm Respiratory: Normal respiratory effort Abdomen: Soft nontender Extremities: Warm dry perfused Neurologic: Grossly intact. Objective Labs 05/19/25 04:59 07/23/24 04:59 Labs: Laboratory Results - last 24 hr 07/22/24 07/22/24 07/22/24 16:36 19:57 20:18 WBC 1.9 L* RBC 4.30 L Hgb 13.4 L Hct 38.4 L MCV 89.2 MCH 31.0 MCHC 34.8 RDW 15.2 H Plt Count 120 L Neut % (Auto) Not Reportable Lymph % (Auto) Not Reportable [place] % (Auto) Not Reportable Eos % (Auto) Not Reportable Baso % (Auto) Not Reportable Neut # (Auto) Lymph # (Auto) Not Reportable [place] # (Auto) Not Reportable Eos # (Auto) Baso # (Auto) Not Reportable Total Counted 100 Seg Neutrophils % 55.0 Lymphocytes % (Manual) 39.0 Monocytes % (Manual) 3.0 Eosinophils % (Manual) 3.0 Neutrophils # (Manual) 1045 L RBC Morphology Normal morphology PT 14.1 H INR 1.2 APTT 35 Sodium 132 L Potassium 3.3 L Chloride 101 Carbon Dioxide 25 BUN 15 Creatinine 0.87 Estimated GFR > 60 BUN/Creatinine Ratio 17.2 Glucose 120 H Lactate 1.5 Calcium 8.2 L Total Bilirubin 0.7 AST 87 H ALT 111 H Alkaline Phosphatase 115 Total Protein 6.4 Albumin 3.4 L Globulin 3.0 Albumin/Globulin Ratio 1.1 Lipase 51 Procalcitonin 0.066 Urine Color Yellow Urine Appearance Clear Urine pH 5.5 Ur Specific [place] 1.020 Urine Protein Negative Urine Glucose (UA) Negative Urine Ketones 1+ H Urine Occult Blood Negative Urine Nitrate Negative Urine Bilirubin Negative Urine Urobilinogen 1.0 Ur Leukocyte Esterase Negative Urine RBC None seen Urine WBC None seen Ur Squamous Epith Cells None seen Urine Bacteria None seen Ur Culture Indicated? Cult not indicated Vol Urine Centrifuged 10ml (spun) SARS-CoV-2 (PCR) Negative Influenza A (RT-PCR) Flu a negative Influenza B (RT-PCR) Flu b negative RSV (PCR) Negative 07/23/24 04:59 WBC 2.1 L RBC 3.54 L Hgb 11.0 L Hct 31.2 L MCV 88.3 MCH 31.2 MCHC 35.3 RDW 15.0 H Plt Count 76 L Neut % (Auto) 76.0 H Lymph % (Auto) 20.5 L [place] % (Auto) 2.8 L Eos % (Auto) 0.4 L Baso % (Auto) 0.3 Neut # (Auto) 1600 Lymph # (Auto) 400 L [place] # (Auto) 100 Eos # (Auto) 0 Baso # (Auto) 0 Total Counted Seg Neutrophils % Lymphocytes % (Manual) Monocytes % (Manual) Eosinophils % (Manual) Neutrophils # (Manual) RBC Morphology PT INR APTT Sodium 127 L Potassium 2.8 L Chloride 103 Carbon Dioxide 18 L BUN 11 Creatinine 0.81 Estimated GFR > 60 BUN/Creatinine Ratio 13.6 Glucose 100 H Lactate Calcium 7.0 L Total Bilirubin 0.8 AST 80 H ALT 96 H Alkaline Phosphatase 93 Total Protein 5.0 L Albumin 2.6 L Globulin 2.4 Albumin/Globulin Ratio 1.1 Lipase Procalcitonin Urine Color Urine Appearance Urine pH Ur Specific [place] Urine Protein Urine Glucose (UA) Urine Ketones Urine Occult Blood Urine Nitrate Urine Bilirubin Urine Urobilinogen Ur Leukocyte Esterase Urine RBC Urine WBC Ur Squamous Epith Cells Urine Bacteria Ur Culture Indicated? Vol Urine Centrifuged SARS-CoV-2 (PCR) Influenza A (RT-PCR) Influenza B (RT-PCR) RSV (PCR) Assessment & Plan Assessment and plan (1) Fever and neutropenia: Status: Acute Plan Neutropenic fever patient with neutropenia and fever due to chemotherapy for his rectal carcinoma. Patient had a fever yesterday. Total white blood cell count on admission was 1.9. Absolute neutrophil count currently is 1600. Patient had blood cultures chest x-ray and stool cultures which are pending at this point. Chest x-ray is normal blood cultures show no growth. Urine shows no signs of infection stool cultures are negative. Influenza COVID and RSV are also negative. Patient was admitted to the hospital with prophylactic Zosyn. Overnight he has remained afebrile. He is still weak and having diarrhea. We will continue with Zosyn. Monitor absolute neutrophil count and send home as soon as cultures come back negative. Hypokalemia. Patient with potassium related abnormalities due to chemotherapy and diarrhea. Patient will be given 40 mEq of K riders and we will go ahead and readjust his electrolytes. We will recheck his potassiumsodium this afternoon. Hypo natremia. Patient with low-sodium on admission. Due to half-normal saline which was given overnight. And his diarrhea from the chemotherapy. Will switch his IV fluid to normal saline and monitor his electrolytes. Stage III rectal adenocarcinoma. Currently undergoing chemotherapy. Diarrhea chemotherapy related diarrhea. Imodium if needed. DVT prophylaxis with SCDs. Lovenox will be held if platelets are below 50. Disposition and plan. Admission to the hospital criteria met with peanut fever hypokalemia and hyponatremia. Plan today replace sodium potassium continue with prophylactic antibiotics anticipate discharge in 24 hours Time-Based Coding :: [TOTAL MINUTES] spent with patient and on the chart (including review of chart, obtaining history, exam, reviewing outside data, placing orders, documenting exam and treatment plan, and counseling patient) on [DATE]. Quality VTE Deep Vein Thrombosis/Pulmonary Embolism Present on Admission: No PROFEE Diesel Inspector Document charge(s): Yes Charge Codes Initial inpatient/observation care: [id number]
[2024-07-23] MEDS: POTASSIUM CHLORIDE IN WATER 10 MEQ/100 ML PIGGYBACK 100 MEQ IV ×4 (09:45→13:32)
[2024-07-23] MEDS: ACETAMINOPHEN 325 MG TABLET 650 MG PO (10:20)
--- NOTE | 2024-07-23 13:26 | DIET.CONS ---
Dietary Consultation Note Admission Date: 07/22/2024 21:15 Assessment: 78y M admitted for diarrhea secondary to chemo tx for colorectal cancer referred to nutrition for poor nutrition status. Pt diagnosed with colorectal cancer in March 2024, has had 7.9% unintentional weight loss in 5mo (severe). Met c pt at bedside, states no longer has mouth sores, but has little appetite with severe taste changes nothing tastes as it should. Pt also with cold intolerance. Prefers no cold foods. Pt finds oatmeal and chicken noodle soup most palatable at this time. Pt had just finished 50% lunch -teriyaki chicken, brown rice, stir auguste veg Ht: 177.8 cm Wt: 63.5 kg (-7.9% in 5mo, severe) BMI: 20.0 (severe for age) UBW: 69kg Last BM: 07/23/24 (07/23/24 09:58) MNA: 6 Chan Score: 18 Diet: 07/22/24 Breakfast General (Regular) Diet Diet Modifications: 07/22/24 16:36 NPO Diet Diet Modifications: NPO Type: NPO except for Meds Labs: RBC 3.54 X10^6/uL (4.5-5.9) L 07/23/24 04:59 Hgb 11.0 g/dL (13.5-17.5) L 07/23/24 04:59 Hct 31.2 % (41-53) L 07/23/24 04:59 Creatinine 0.81 mg/dL (0.66-1.25) 07/23/24 04:59 Lactate 1.5 mmol/L (0.7-2.1) 07/22/24 16:36 Nutrition Diagnosis: Severe Acute Protein Calorie Malnutrition r/t inadequate intake aeb 7.9% unintentional weight loss in 5mo (severe), BMI 20.1 (severe for age), pt with dx colorectal cancer with chemo tx side effects of taste changes and poor appetite, MNA on admission 6 (malnourished). Interventions: 1. Educated pt on high kcal/high protein WARM foods to support nutrition status- warm soups, warm cereals, added collagen protein, spoon peanut butter. 2. Collagen protein to be added to warm foods this hospitalization, recc continuing as tolerated in outpatient setting. 3. Recc f/u with oncology RD EER: 1900kcals (30kcal/kg per malnutrition), 72g PRO (1.2g/kg per PCM) Monitoring/Evaluations: adding collagen protein to foods during hospitalization to support nutrition status. Electronically Signed by: Nya Emmanuel 07/23/24 13:26 Clinical Dietitian [address] [id number]
[2024-07-23] MEDS: SODIUM CHLORIDE 0.9% 1,000 ML 150 ML IV (13:32)
--- NOTE | 2024-07-23 14:49 | CM.DANOTE ---
Patient is a 78 yo male who was admitted OBS Status on 07/22/24 for Neutropenic Fever with Potassium and Sodium abnormalities. Pt has [facility] and [employer] for insurance and his PCP is Dr. Carlos Briseno at [facility]. EMR was reviewed. Per MD, pt with hx of rectal carcinoma stage III and getting chemo and soon radiation from Oncologist at [facility]. Pt with increased weakness and diarrhea from chemo treatments and to have fluids and sodium and K today and repeat labs for hopeful discharge home this evening if stable. Per OUTBOARD MOTOR ASSEMBLER and RN, pt mobilized well in room to bathroom and no need for PT eval at this time. SW met bedside with pt and explained role and he confirms he lives in [place] with his spouse Ghada, who is also his DPOA, and both are fairly active and independent at baseline but they have a drying machine receiver that comes a couple times a month and their really good friends have been grocery shopping for them since his cancer dx. Pt denies any HH or other formal CG in place. Their son Jerad lives locally and can assist as needed. Pt confirms his preference is to discharge home when stable and does not anticipate any discharge planning needs and states his good friend plans to provide transport home at d/c as his recently had a humerus fx that she is recovering from. Plan: SW to follow for afternoon labs to confirm his K and sodium normal for plan of discharge home tonight vs tomorrow Tues via friend POV. SW to follow for any further identified discharge planning needs. ELVIN Blackmon Discharge Planning/Care Management CM Discharge Assessment Start: 07/22/24 21:19 Freq: Status: Active Protocol: Document 07/23/24 14:47 BF (Rec: 07/23/24 14:49 [id number]) Discharge Planning Assessment Assigned Regulatory Affairs Director ELVIN Coe DPOA/Assigned Designee Name spouse Ghada Contact Information [phone] Advance Directives? No: states full code Advance Directives on File No History Provided By Patient,Significant Other, Medical Record Has Patient been admitted in last 30 No days? Prior Living Arrangements House Household Members spouse Type of transporation used prior to Drives own vehicle admit Independent with ADL's Yes Is patient alert and oriented? Yes Needs Assistance With Home Chores / Shopping Comment Have drying machine receiver and local friends help with grocery shopping Caregiver for Another Yes: spouse with recent humorous fx Community Services used prior to IV Therapy admission: Comment currently getting chemo for rectal CA and to start radiation soon DME Already Rented / Owned Cane Barriers to Discharge No Discharge Plan Home Transportation Arrangement Friend plans to provide transport at d/c Referrals Initiated None needed Whiteboard Updated in Patient Room with Yes name and ext. # of Regulatory Affairs Director Review Status In Process Please Provide Date Initial DC 07/23/24 Assessment Was Performed Next Review Type Continued Stay Review
[2024-07-23 17:08] LABS: Blood Urea Nitrogen 10 mg/dL (9-20); Calcium 7.4 mg/dL (8.4-10.2); Carbon Dioxide 19 mmol/L (22-32); Chloride 109 mmol/L (98-107); Estimated Glomerular Filt Rate > 60 mL/min (>60); Glucose 101 mg/dL (70-99); HEMOLYSIS 16 (0-50); Potassium 3.5 mmol/L (3.4-5.1); Sodium 133 mmol/L (137-145)
--- NOTE | 2024-07-24 14:05 | PM.DS.IH.1 ---
History of Present Illness History of Present Illness Chief complaint: diarrhea, fever - chemo therapy Narrative: 78-year-old male with rectal carcinoma stage III patient getting chemotherapy and soon to be radiation. He received chemotherapy at [facility]. Patient is receiving FLOWFOX. Patient states he has been doing well feeling weak having a lot of diarrhea with his chemotherapy treatment. He yesterday afternoon patient began to have chills rigors and a low-grade temperature. His was immediately concerned and brought him to the emergency department for evaluation. Patient describes ongoing weakness no cough no respiratory distress. Patient has had symptoms of increasing watery stools which he thinks is consistent with being on chemotherapy. He has poor appetite. No urinary symptoms such as burning. Patient says he is not sleeping well. Especially here in the hospital. He is not having any particular pain. Discharge Providers Provider Date of admission: 07/22/24 21:15 Discharge Date: 07/24/24 Primary care physician: Carlos Briseno MD Consults: 07/22/24 22:36 Consult to Dietitian, Adult Routine Comment: Reason For Exam: wt loss with chemo Discharge provider: Carlos Briseno MD Summary Hospital Course Discharge Diagnosis: Neutropenic fever due to chemotherapy unknown source Stage III rectal carcinoma Acute hypokalemia Acute hyponatremia Diarrhea chemo associated related Hospital Course: Neutropenic fever patient with neutropenia and fever due to chemotherapy for his rectal carcinoma. Patient had low weight blood cell count MARCIO was above 5000 patient had fevers and chills at home. Patient had cultures of blood chest x-ray viral panel testing GI panel testing and urinalysis to rule out her exclude other infections. Patient's cultures ultimately grew out no source of infection. During his hospital stay he was placed on Zosyn IV 24 hours until culture results preliminary were back. During the hospital stay he remained afebrile vital signs were stable no signs of hypotension or significant sepsis. Patient was tolerating diet. Patient had repeat checking of his CBC which was going up. The time of discharge he was transitioned from IV antibiotics to oral antibiotics. Hypokalemia and hyponatremia. Electrolyte abnormalities were due to chemotherapy and diarrhea that he is having from the chemotherapy during the hospital stay his electrolytes were replaced with a sodium containing IV fluids as well as potassium replacement at the time of discharge his sodium had improved as well as his potassium. Stage III rectal adenocarcinoma. Patient currently undergoing chemotherapy soon to begin radiation therapy Diarrhea chemotherapy related diarrhea. Imodium if needed Patient has a follow up with Oncology in 7 days. Exam Vital Signs (past 8 hours): Oxygen Delivery Method Room Air Oxygen Flow Rate 0 Objective Labs 07/23/24 04:59 07/23/24 16:35 Labs: Laboratory Results - last 24 hr 07/23/24 16:35 Sodium 133 L Potassium 3.5 Chloride 109 H Carbon Dioxide 19 L BUN 10 Creatinine 0.77 Estimated GFR > 60 BUN/Creatinine Ratio 13.0 Glucose 101 H Calcium 7.4 L PFSH Medical History Colon cancer screening Localized pruritus Mild anemia Fatigue Hemorrhoids Hepatitis A Jaundice due to hepatitis (1971) Chicken pox GERD (gastroesophageal reflux disease) (~1989) Hearing loss (~1999) Measles Mumps Toe fracture, right (2013) Surgical History Anesthesia History of rectal surgery (1997) Status post colonoscopy (2008) Family History Father Brain tumor Stroke Mother Bowel obstruction Cancer Sister No problems noted. Social History marital status: household members: spouse occupational status: previously employed Smoking Status: Former smoker alcohol intake: current substance use type: does not use Discharge Plan Discharge Plan Patient Disposition: Home Provider Discharge Comment: f/u with oncology in one week Discharge orders & Medications Prescriptions: New amoxicillin-pot clavulanate [Augmentin XR] 1,000-62.5 mg tablet extended release 12 hr 1 tab PO BID 10 Days Qty: 20 0RF Follow up/Referrals: Carlos Briseno MD [Primary Care Provider] - Discharge Health Status Multidrug resistant organism: No MDRO Visit Report/Discharge Packet Stand Alone Forms: Patient Portal/API, Stroke Signs & Symptoms Discharge Data Primary Care Provider: Carlos Briseno Attending Provider: Carlos Briseno Admit Date/Time: 07/22/24 21:15 Quality VTE Deep Vein Thrombosis/Pulmonary Embolism Present on Admission: No IH PROFEE Charge Codes Discharge inpatient/observation: [id number]
== END 2024-07-23 18:20 | disposition home or self-care (01) ==
LOC: ED 21:16 → AC 21:16
PROVIDERS: Emergency Medicine; Family Medicine; Admitting Provider Family Medicine; Emergency Provider Emergency Medicine; PCP Family Medicine; Referring Provider Emergency Medicine; Visit Provider Family Medicine
DX: R50.2 Drug induced fever (principal); R11.2 Nausea with vomiting, unspecified; C20 Malignant neoplasm of rectum; E87.6 Hypokalemia; K52.1 Toxic gastroenteritis and colitis; E87.1 Hypo-osmolality and hyponatremia; Z87.891 Personal history of nicotine dependence; Z11.52 Encounter for screening for COVID-19
CPT/HCPCS: 0241U; 36415; 71045; 80048; 80053; 81001; 81003; 83605; 83690; 84145; 85007; 85025; 85610; 85730; 87040; 87507; 96361; 96365; 96366; 96367; 99284; G0378; J2543; J7050

== ENCOUNTER 2024-07-25 22:53 | Inpatient (IN) | payer MEDICARE, SELFPAY ==
[2024-07-25 22:47] VITALS: BP 124/56; PULSE 125; RESP 18; TEMP 37.7; O2SAT 95; BMI 20.8
[2024-07-25 22:52] VITALS: BP 124/56; PULSE 126; O2SAT 94
--- NOTE | 2024-07-25 22:53 | ED.GENADULT ---
HPI - General Adult General Chief complaint: Fever Stated complaint: Fever Time Seen by Provider: 07/25/24 22:53 Source: patient, EMS, RN notes reviewed and old records reviewed Mode of arrival: EMS Limitations: no limitations History of Present Illness HPI narrative: 78-year-old male with a history of colorectal carcinoma stage III receiving chemotherapy through [facility]. Patient is supposed to receive radiation but has not. He was receiving flow falx. Patient comes from home and it was reported have a fever of 102 F, patient describes being weak and a little bit altered per family EMS. He has been alert and oriented for EMS. He describes some weakness. He denies any fevers that he was aware of, no cough, no difficulty with breathing, no chest pain or pressure. No abdominal back or flank pain. Denies any nausea or vomiting. States he has a lot of diarrhea yesterday. Denies any black or bloody stools. Denies any urinary symptoms. Notes little bit of rash in the inside of his thigh that has been there for a couple of weeks. Patient was recently hospitalized 07/22/2024 discharged home for neutropenia and fever due to chemotherapy, hypokalemia, hyponatremia and suspected diarrhea secondary to chemotherapy. Patient states he was had 4 rounds of chemotherapy is due for 2 more last round was last Tuesday. Has a port in place, denies any drug allergies. Denies tobacco, alcohol or recreational drugs. Dr. Briseno is his primary care physician. Reports normally baseline ambulatory at home. Medics state he was very weak and unable to ambulate. Related Data Previous Rx's Medication Instructions Recorded amoxicillin-potassium clavulanate 1 tab PO BID 10 days #20 tabs 07/23/24 1,000 mg-62.5 mg tablet,ext.rel 12hr (Augmentin XR) Allergies Allergy/AdvReac Type Severity Reaction Status Date / Time No Known Drug Allergies Allergy Verified 07/12/24 08:27 Review of Systems Review of Systems ROS Unobtainable: All systems reviewed & are unremarkable except as noted in HPI and below Patient History Medical History Colon cancer screening Localized pruritus Mild anemia Fatigue Hemorrhoids Hepatitis A Jaundice due to hepatitis (1971) Chicken pox GERD (gastroesophageal reflux disease) (~1989) Hearing loss (~1999) Measles Mumps Toe fracture, right (2013) Surgical History Anesthesia History of rectal surgery (1997) Status post colonoscopy (2008) Family History Father Brain tumor Stroke Mother Bowel obstruction Cancer Sister No problems noted. Social History marital status: household members: spouse occupational status: previously employed Smoking Status: Never smoker alcohol intake: current substance use type: does not use alcohol intake frequency: 0-2 drinks per day Exam Narrative Exam Narrative: GEN: Elderly appearing male, alert and oriented, patient appears to be in mild distress. HEENT: Atraumatic, pupils are equal round reactive to light, extraocular movements are intact, nares are clear, TMs are clear with no fluid, there is no conjunctival pallor. Throat is clear without any exudates, erythema, tonsillar enlargement or uvular deviation HEART: Regular rate and rhythm without murmur, clicks, rubs. pulses are equal in upper and lower extremities. Patient has a port in his right upper chest. LUNGS:Lungs clear to auscultation, no wheezes, rales, crackles, chest moves symmetrically, no tachypnea accessory muscle ABD:bowel sounds normal, soft, non-tender, no guarding, rebound, rigidity, no masses noted, no hepatosplenomegaly :No CVA tenderness MSCL: Non-tender, no muscle atrophy, muscles strength 5/5 upper and lower extremities, full range of motion NEURO:CN 2-12 intact, sensation normal SKIN: Patient was slightly erythematous macular papular patchy rash in his right inguinal area upper thigh. It is blanchable. There are no blisters or petechiae. No other skin changes appreciated. It is proximally 3 x 5 cm. Initial Vital Signs Initial Vital Signs: Vital Signs Temperature 99.9 F H 07/25/24 22:47 Pulse Rate 125 H 07/25/24 22:47 Respiratory Rate 18 07/25/24 22:47 Blood Pressure 124/56 L 07/25/24 22:47 Pulse Oximetry 95 07/25/24 22:47 Oxygen Delivery Method Room Air 07/25/24 22:47 Course Orders Ordered: ED Orders 07/25/24 22:58 XR chest 1V Stat 07/25/24 22:59 Urinalysis and Microscopic Stat EKG-12 Lead Stat 07/25/24 23:10 Complete Blood Count AUTO DIFF Stat Comprehensive Metabolic Panel Stat Lactate (Lactic Acid) Stat Procalcitonin Stat Troponin & CK Cardiac Panel Stat 07/25/24 23:15 Blood Culture Stat 07/26/24 00:07 Covid-19 + FLU A/B + RSV - PCR Stat POTASSIUM CHLORIDE IN WATER (Potassium Cl 10 Meq/100 Ml [place]) 10 meq in 100 mls @ 100 mls/hr IV Q1H ELIJAH Stop: 07/26/24 03:44 Last Admin: 07/26/24 00:33 Dose: 100 mls/hr Documented By: JERMAINE Sodium Chloride (Normal Saline 0.9%) 2,052 mls @ 684 mls/hr 30 ml/kg infuse over 3 hr (2052 ml) IV NOW ONE Stop: 07/26/24 03:54 Last Admin: 07/26/24 01:22 Dose: 684 mls/hr Discontinued Medications Sodium Chloride (Normal Saline 0.9%) 1,000 mls @ 1,000 mls/hr IV BOLUS ONE Stop: 07/25/24 23:59 Last Admin: 07/25/24 23:08 Dose: 1,000 mls/hr Documented By: WINNIE Cefepime HCl 2 gm/ Sodium (Chloride) 100 mls @ 200 mls/hr IV NOW ONE Stop: 07/26/24 00:57 Last Admin: 07/26/24 01:23 Dose: 200 mls/hr Potassium Chloride (Potassium Chloride 20 Meq Tab) 40 meq PO NOW ONE Stop: 07/25/24 23:58 Last Admin: 07/26/24 00:33 Dose: 40 meq Documented By: JERMAINE Vital Signs Vital signs: Vital Signs - 8 hr 07/25/24 22:47 07/25/24 22:52 07/25/24 23:00 Temperature 99.9 F H 99.9 F H Pulse Rate 125 H 126 H 124 H Respiratory Rate 18 21 Blood Pressure 124/56 L 124/56 L 108/53 L Pulse Oximetry 95 94 94 Oxygen Delivery Method Room Air Room Air Room Air 07/25/24 23:30 07/26/24 00:00 07/26/24 00:09 Temperature 99.9 F H Pulse Rate 111 H 103 H 101 H Respiratory Rate 21 19 22 Blood Pressure 103/56 L 103/56 L Pulse Oximetry 95 96 96 Oxygen Delivery Method Room Air Room Air 07/26/24 00:11 07/26/24 00:11 07/26/24 00:12 Temperature Pulse Rate 103 H Respiratory Rate 20 Blood Pressure 105/57 L 104/57 L Pulse Oximetry 95 Oxygen Delivery Method 07/26/24 00:12 07/26/24 00:13 07/26/24 00:13 Temperature Pulse Rate 104 H 102 H Respiratory Rate 19 19 Blood Pressure 101/56 L Pulse Oximetry 95 95 Oxygen Delivery Method Room Air 07/26/24 00:14 07/26/24 00:14 07/26/24 00:15 Temperature Pulse Rate 101 H 101 H Respiratory Rate 19 17 Blood Pressure 104/54 L Pulse Oximetry 95 96 Oxygen Delivery Method 07/26/24 00:15 07/26/24 00:16 07/26/24 00:16 Temperature Pulse Rate 101 H Respiratory Rate 19 Blood Pressure 99/54 L 102/54 L Pulse Oximetry 95 Oxygen Delivery Method 07/26/24 00:30 07/26/24 00:30 07/26/24 01:00 Temperature Pulse Rate 103 H Respiratory Rate 19 Blood Pressure 103/57 L 103/57 L Pulse Oximetry 95 Oxygen Delivery Method 07/26/24 01:00 Temperature Pulse Rate 103 H Respiratory Rate 22 Blood Pressure Pulse Oximetry 95 Oxygen Delivery Method Room Air Medical Decision Making Lab Data 07/25/24 23:10 07/25/24 23:10 Labs: Lab Results 07/25/24 07/26/24 Range/Units 23:10 00:07 WBC 0.4 L* (4.5-11.0) X10^3/uL RBC 3.68 L (4.5-5.9) X10^6/uL Hgb 11.2 L (13.5-17.5) g/dL Hct 32.5 L (41-53) % MCV 88.3 (80-100) fL MCH 30.4 (26-34) PG MCHC 34.5 (30-36) % RDW 14.7 (11.6-14.8) % Plt Count 94 L (150-400) X10^3/uL Neut % (Auto) Not Reportable Lymph % (Auto) Not Reportable [place] % (Auto) Not Reportable Eos % (Auto) Not Reportable Baso % (Auto) Not Reportable Lymph # (Auto) Not Reportable [place] # (Auto) Not Reportable Baso # (Auto) Not Reportable Total Counted 100 Seg Neutrophils % 18.0 L (38-70) % Band Neutrophils % 8.0 H (3-7) % Lymphocytes % (Manual) 51.0 H (25-45) % Atypical Lymphs % 4.0 H ( - 0) % Monocytes % (Manual) 18.0 H (2-11) % Blast Cells % 1.0 H (-0) % Neutrophils # (Manual) 104 L (1414-1530) /uL Platelet Estimate Decreased on smear RBC Morphology Normal morphology Sodium 128 L (137-145) mmol/L Potassium 2.6 L* (3.4-5.1) mmol/L Chloride 99 (98-107) mmol/L Carbon Dioxide 22 (22-32) mmol/L BUN 6 L (9-20) mg/dL Creatinine 0.71 (0.66-1.25) mg/dL Estimated GFR > 60 (>60) mL/min BUN/Creatinine Ratio 8.5 (6-22) Glucose 155 H (70-99) mg/dL Lactate 1.0 (0.7-2.1) mmol/L Calcium 7.6 L (8.4-10.2) mg/dL Total Bilirubin 0.9 (0.2-1.3) mg/dL AST 38 (17-59) IU/L ALT 53 H (<50) IU/L Alkaline Phosphatase 103 (38-126) U/L Total Creatine Kinase 26 L (55-170) U/L Troponin I < 0.012 (0.01-0.034) ng/mL Total Protein 5.7 L (6.3-8.2) g/dL Albumin 2.9 L (3.5-5.0) g/dL Globulin 2.8 (1.7-4.1) g/dL Albumin/Globulin Ratio 1.0 (1.0-2.8) Procalcitonin 0.280 (<0.5) ng/mL SARS-CoV-2 (PCR) Negative (Negative) Influenza A (RT-PCR) Flu a negative (NEGATIVE) Influenza B (RT-PCR) Flu b negative (NEGATIVE) RSV (PCR) Negative (Negative) ECG Data Attestation: I personally reviewed and interpreted this ECG as follows: Interpretation: Sinus tachycardia rate of 104 NH 164 QRS 86 QTC of 447, no acute ST elevation or depression. MDM Narrative Medical decision making narrative: 78-year-old male recent here for neutropenic fever with a white count of 1.9 improved to 2.1 but today is 0.4 returns with a reported fever at home, weakness, patient's hemoglobin appears stable platelets are 94, patient has 8% bands 51% lymphocytes. 18% monocytes. INR is 1.2 sodium is down to 128 was 127 on the , potassium down again to 2.6, chloride 99 CO2 is 22 with a BUN 6 and creatinine 0.71, glucose is 155 calcium 7.6 ALT is 53 bilirubin AST are normal alk-phos is normal with a procalcitonin 0.28 and troponin less than 0.012 COVID/influenza/RSV is negative Chest x-ray shows streaky opacity left lung base could represent atelectasis or scarring. Hiatal hernia. Patient had noted some diarrhea likely part of the reason he was hypokalemic again. Has not give a sample here today. Patient had fluids, potassium orally as well as IV for replacement. Patient's heart rate significantly improved with the fluids but still slightly tachycardic we will give a full 30 cc/kilos bolus but space has a little bit farther as patient is high-risk for fluid overload. Was covered with a dose of cefepime for neutropenic fever had reported fever in the field although afebrile here. Spoke with patient and family, both patient's and son are at bedside and patient was full code. They report fevers up to 101 F with forehead and temporal monitor. Note patient felt hot and was sweaty. Spoke with Dr. Rock on-call for Dr. Briseno at [phone] accepts for admission for likely neutropenic fever, hypokalemia, hyponatremia. Discharge Plan Departure Patient Disposition: Admitted As Inpatient Clinical Impression: Neutropenic, Hypokalemia, Weakness, Diarrhea Admit Date/Time: 07/26/24 01:29 Admit Provider: Carlos Rock
--- NOTE | 2024-07-25 22:58 | DI.RAD.S_ITS ---
PROCEDURE: XR CHEST 1V INDICATIONS: fever, on chemo TECHNIQUE: One view of the chest was acquired. COMPARISON: [facility], CT, CT CHEST ABD PEL W CON, 03/20/2024, 10:23. [facility], CR, XR CHEST 1V, 07/22/2024, 16:43. [facility], CR, XR CHEST 2V, 10/07/2021, 10:39. FINDINGS: Surgical changes and devices: Right-sided port with the catheter tip at the lower 3rd of the SVC. Lungs and pleura: Streaky opacity at the left lung base. No pleural effusions or pneumothorax. Mediastinum: Mediastinal contours appear unchanged. Hiatal hernia. Heart size is normal. Bones and chest wall: No suspicious bony lesions. Overlying soft tissues appear unremarkable. IMPRESSION: Streaky opacity at the left lung base. This could represent atelectasis or scarring. Hiatal hernia. Dictated by: Milan Kuo M.D. on 07/26/2024 at 0:42 Approved by: Milan Kuo M.D. on 07/26/2024 at 0:43
[2024-07-25 23:00] VITALS: BP 108/53; PULSE 124; RESP 21; TEMP 37.7; O2SAT 94
[2024-07-25] MEDS: SODIUM CHLORIDE 0.9% 1,000 ML 1000 ML IV (23:08)
[2024-07-25 23:21] LABS: Hematocrit 32.5 % (41-53); Hemoglobin 11.2 g/dL (13.5-17.5); Mean Corpuscular HGB Conc 34.5 % (30-36); Mean Corpuscular Hemoglobin 30.4 PG (26-34); Mean Corpuscular Volume 88.3 fL (80-100); Platelet Count 94 X10^3/uL (150-400); Red Blood Cell Count 3.68 X10^6/uL (4.5-5.9); Red Cell Distribution Width 14.7 % (11.6-14.8)
[2024-07-25 23:24] LABS: Add Manual Diff / Slide Review YES
[2024-07-25 23:25] LABS: White Blood Cell Count 0.4 X10^3/uL (4.5-11.0)
[2024-07-25 23:30] VITALS: BP 103/56; PULSE 111; RESP 21; O2SAT 95
[2024-07-25 23:53] LABS: Alanine Aminotransferase 53 IU/L (<50); Albumin 2.9 g/dL (3.5-5.0); Alkaline Phosphatase 103 U/L (38-126); Aspartate Aminotransferase 38 IU/L (17-59); BUN Creatinine Ratio 8.5 (6-22); Bilirubin Total 0.9 mg/dL (0.2-1.3); Blood Urea Nitrogen 6 mg/dL (9-20); Calcium 7.6 mg/dL (8.4-10.2); Carbon Dioxide 22 mmol/L (22-32); Chloride 99 mmol/L (98-107); Creatine Kinase 26 U/L (55-170); Estimated Glomerular Filt Rate > 60 mL/min (>60); Globulin 2.8 g/dL (1.7-4.1); Glucose 155 mg/dL (70-99); HEMOLYSIS < 15 (0-50); Sodium 128 mmol/L (137-145); Total Protein 5.7 g/dL (6.3-8.2)
[2024-07-25 23:55] LABS: Potassium 2.6 mmol/L (3.4-5.1)
[2024-07-26] VITALS (21 sets, daily range): BP systolic 96–137; BP diastolic 54–83; PULSE 94–104; RESP 16–22; TEMP 36.4–37.7; O2SAT 93–98; BMI 20.8
[2024-07-26 00:04] LABS: Troponin I < 0.012 ng/mL (0.01-0.034)
[2024-07-26] MEDS: POTASSIUM CHLORIDE 20 MEQ TAB 40 MEQ PO (00:33)
[2024-07-26] MEDS: POTASSIUM CHLORIDE IN WATER 10 MEQ/100 ML PIGGYBACK 100 MEQ IV ×5 (00:33→16:27)
[2024-07-26 00:35] LABS: Neutrophils Absolute Manual 104 /uL (3000-5900); Platelet Estimate Decreased on smear; RBC Morphology Normal Morphology; Total Cells Counted 100
--- NOTE | 2024-07-26 01:03 | EKG_ITS ---
[address] [address] [address] [address] Test Date: 2024-07-26 Pat Name: Wiley Aguirre Department: [facility] Room: A Gender: Male Creative Services Coordinator: : 1945 Requested By: Order Number: [id number] Reading MD: Sal Mendoza Measurements Intervals [place] Rate: 104 P: 45 PA: 164 QRS: 48 QRSD: 86 T: 48 QT: 340 QTc: 447 Interpretive Statements Sinus tachycardia Electronically Signed On 07-27-2024 19:07:31 PDT by Sal Mendoza
[2024-07-26 01:05] LABS: COVID-19 CEPHEID 4-PLEX PCR Negative (Negative); Influenza A - CEPHEID Flu A NEGATIVE (NEGATIVE); Influenza B - CEPHEID Flu B NEGATIVE (NEGATIVE); Respiratory Syncytial Virus Negative (Negative)
[2024-07-26] MEDS: SODIUM CHLORIDE 0.9% 2,052 ML 684 ML IV (01:22)
[2024-07-26] MEDS: CEFEPIME 2 GM in SODIUM CHLORIDE 0.9% 100 ML IV ×2 (01:23→14:17)
[2024-07-26 02:14] LABS: Appearance Urine UA CLEAR; Bilirubin Urine UA NEGATIVE (NEGATIVE); Color Urine UA YELLOW; Glucose Urine UA TRACE g/dL (Negative); Ketones Urine UA 1+ (NEGATIVE); Leukocyte Esterase Urine UA NEGATIVE (NEGATIVE); Nitrite Urine UA NEGATIVE (Negative); Occult Blood Urine UA NEGATIVE (Negative); Protein Urine UA NEGATIVE (Negative); Urobilinogen Urine UA 0.2 E.U./dL (0.2)
[2024-07-26 02:20] LABS: Bacteria Urine None Seen; RBC Urine None Seen (0-5/HPF); Squamous Epithelial Cell Urine None Seen (0-5/HPF); Urine Volume 10mL (spun); WBC Urine None Seen (0-5/HPF)
[2024-07-26 02:21] LABS: Culture Indicated Urine Cult Not Indicated
[2024-07-26] MEDS: SODIUM CHLORIDE 0.9% 1,000 ML 100 ML IV ×2 (04:24→14:17)
[2024-07-26] MEDS: ACETAMINOPHEN 325 MG TABLET 650 MG PO ×2 (04:24→20:06)
[2024-07-26] MEDS: LOPERAMIDE 2 MG CAPSULE PO ×2 (04:25→16:22)
[2024-07-26 04:53] LABS: Adenovirus F 40/41 Not Detected (Not Detect); Astrovirus Not Detected (Not Detect); Campylobacter Not Detected (Not Detect); Clostridium difficile toxin AB Not Detected (Not Detect); Cryptosporidium Not Detected (Not Detect); Cyclospora cayetanensis Not Detected (Not Detect); Entamoeba histolytica Not Detected (Not Detect); Enteroaggregative E.coli Not Detected (Not Detect); Enteropathogenic E.coli Not Detected (Not Detect); Enterotoxigenic E.coli It/st Not Detected (Not Detect); Giardia lamblia Not Detected (Not Detect); Norovirus GI/GII Not Detected (Not Detect); Plesiomonsa shigelloides Not Detected (Not Detect); Rotavirus A Not Detected (Not Detect); Salmonella Not Detected (Not Detect); Sapovirus Not Detected (Not Detect); Shiga-like toxin-prod E.coli Not Detected (Not Detect); Shigella/Enteroinvasive E.coli Not Detected (Not Detect); Vibrio Not Detected (Not Detect); Vibrio cholerae Not Detected (Not Detect); Yersinia enterocolitica Not Detected (Not Detect)
--- NOTE | 2024-07-26 08:55 | P.HP_ITS ---
History of Present Illness History of Present Illness Date Patient Seen: 07/26/24 Time Patient Seen: 08:55 Chief complaint: Fever Narrative: 78-year-old male with stage III rectal carcinoma undergoing chemotherapy. Patient recently admitted to the hospital because of neutropenic fever hyponatremia and hypokalemia. Patient had correction of his electrolytes. At patient's insistence he was discharged home afterwards. Because of his neutropenia his improved sodium potassium and feeling better patient desired to go home. Patient was readmitted 48 hours later. With ongoing diarrhea with additional electrolyte disturbances including now hyponatremia and hypokalemia. Of note concern his white blood cell count is continue to drop. He had a fever of 100.2 at home. He was admitted back to the hospital with weakness and not feeling well electrolyte abnormalities and diarrhea. [facility] Medical History Colon cancer screening Localized pruritus Mild anemia Fatigue Hemorrhoids Hepatitis A Jaundice due to hepatitis (1971) Chicken pox GERD (gastroesophageal reflux disease) (~1989) Hearing loss (~1999) Measles Mumps Toe fracture, right (2013) Surgical History Anesthesia History of rectal surgery (1997) Status post colonoscopy (2008) Family History Father Brain tumor Stroke Mother Bowel obstruction Cancer Sister No problems noted. Social History marital status: household members: spouse occupational status: previously employed Smoking Status: Former smoker alcohol intake: current substance use type: does not use Meds Home Medications and Allergies Home Medications Medication Instructions Recorded Confirmed Type amoxicillin-potassium clavulanate 1 tab PO BID 10 days #20 tabs 07/23/24 Rx 1,000 mg-62.5 mg tablet,ext.rel 12hr (Augmentin XR) Allergies Allergy/AdvReac Type Severity Reaction Status Date / Time No Known Drug Allergies Allergy Verified 07/12/24 08:27 Exam Vital Signs (past 8 hours): - 07/26/24 01:00 07/26/24 01:00 07/26/24 01:30 Temperature Pulse Rate 103 H Respiratory Rate 22 Blood Pressure 103/57 L 101/59 L Pulse Oximetry 95 Oxygen Delivery Method Room Air Oxygen Flow Rate 07/26/24 01:30 07/26/24 02:00 07/26/24 02:00 Temperature Pulse Rate 104 H 100 H Respiratory Rate 20 21 Blood Pressure 102/55 L Pulse Oximetry 95 94 Oxygen Delivery Method Room Air Oxygen Flow Rate 07/26/24 02:30 07/26/24 02:30 07/26/24 03:00 Temperature Pulse Rate 99 H 101 H Respiratory Rate 21 18 Blood Pressure 96/54 L Pulse Oximetry 95 97 Oxygen Delivery Method Room Air Room Air Oxygen Flow Rate 07/26/24 03:00 07/26/24 03:30 07/26/24 04:00 Temperature 99.3 F Pulse Rate 100 H 100 H Respiratory Rate 18 19 Blood Pressure 115/59 L 105/57 L 137/74 Pulse Oximetry 97 98 Oxygen Delivery Method Room Air Oxygen Flow Rate 0 07/26/24 04:00 07/26/24 04:24 Temperature 99.3 F Pulse Rate Respiratory Rate Blood Pressure Pulse Oximetry Oxygen Delivery Method Room Air Oxygen Flow Rate Oxygen Delivery Method Room Air Oxygen Flow Rate 0 Narrative Exam Narrative: Gen.: Alert generalized weakness HEENT: Pupils equal round and reactive or mucosa is moist Cardio: Regular rate and rhythm Respiratory: Normal respiratory effort Abdomen: Soft nontender Extremities: Warm dry perfused Neurologic: Grossly intact. Objective Labs 07/25/24 23:10 07/25/24 23:10 Labs: Laboratory Results - last 24 hr 07/25/24 07/26/24 07/26/24 23:10 00:07 01:30 WBC 0.4 L* RBC 3.68 L Hgb 11.2 L Hct 32.5 L MCV 88.3 MCH 30.4 MCHC 34.5 RDW 14.7 Plt Count 94 L Neut % (Auto) Not Reportable Lymph % (Auto) Not Reportable [place] % (Auto) Not Reportable Eos % (Auto) Not Reportable Baso % (Auto) Not Reportable Lymph # (Auto) Not Reportable [place] # (Auto) Not Reportable Baso # (Auto) Not Reportable Total Counted 100 Seg Neutrophils % 18.0 L Band Neutrophils % 8.0 H Lymphocytes % (Manual) 51.0 H Atypical Lymphs % 4.0 H Monocytes % (Manual) 18.0 H Blast Cells % 1.0 H Neutrophils # (Manual) 104 L Platelet Estimate Decreased on smear RBC Morphology Normal morphology Sodium 128 L Potassium 2.6 L* Chloride 99 Carbon Dioxide 22 BUN 6 L Creatinine 0.71 Estimated GFR > 60 BUN/Creatinine Ratio 8.5 Glucose 155 H Lactate 1.0 Calcium 7.6 L Total Bilirubin 0.9 AST 38 ALT 53 H Alkaline Phosphatase 103 Total Creatine Kinase 26 L Troponin I < 0.012 Total Protein 5.7 L Albumin 2.9 L Globulin 2.8 Albumin/Globulin Ratio 1.0 Procalcitonin 0.280 Urine Color Yellow Urine Appearance Clear Urine pH 6.0 Ur Specific [place] 1.010 Urine Protein Negative Urine Glucose (UA) Trace H Urine Ketones 1+ H Urine Occult Blood Negative Urine Nitrate Negative Urine Bilirubin Negative Urine Urobilinogen 0.2 Ur Leukocyte Esterase Negative Urine RBC None seen Urine WBC None seen Ur Squamous Epith Cells None seen Urine Bacteria None seen Ur Culture Indicated? Cult not indicated Vol Urine Centrifuged 10ml (spun) Stl C. cayetanensis PCR Stool Rotavirus (PCR) Stool Adenovirus (PCR) Stool Astrovirus (PCR) Stool Cryptosporidium PCR Stl E.coli Shiga Tox PCR St Sh/Enteroin Ecoli PCR Stl Enterotoxigenic E PCR Stool EPEC (PCR) Stl E. histolytica PCR Stool Giardia Lamblia PCR Stool Sapovirus (PCR) Stl P. shigelloides PCR St Y.enterocolitica PCR Stool Vibrio (PCR) Stl Vibrio cholerae PCR Stl Enteroaggr Ecoli PCR Stl Norovirus GI/GII PCR Campylobacter (PCR) C. difficile Tox (PCR) SARS-CoV-2 (PCR) Negative Influenza A (RT-PCR) Flu a negative Influenza B (RT-PCR) Flu b negative RSV (PCR) Negative Salmonella (PCR) 07/26/24 03:30 WBC RBC Hgb Hct MCV MCH MCHC RDW Plt Count Neut % (Auto) Lymph % (Auto) [place] % (Auto) Eos % (Auto) Baso % (Auto) Lymph # (Auto) [place] # (Auto) Baso # (Auto) Total Counted Seg Neutrophils % Band Neutrophils % Lymphocytes % (Manual) Atypical Lymphs % Monocytes % (Manual) Blast Cells % Neutrophils # (Manual) Platelet Estimate RBC Morphology Sodium Potassium Chloride Carbon Dioxide BUN Creatinine Estimated GFR BUN/Creatinine Ratio Glucose Lactate Calcium Total Bilirubin AST ALT Alkaline Phosphatase Total Creatine Kinase Troponin I Total Protein Albumin Globulin Albumin/Globulin Ratio Procalcitonin Urine Color Urine Appearance Urine pH Ur Specific [place] Urine Protein Urine Glucose (UA) Urine Ketones Urine Occult Blood Urine Nitrate Urine Bilirubin Urine Urobilinogen Ur Leukocyte Esterase Urine RBC Urine WBC Ur Squamous Epith Cells Urine Bacteria Ur Culture Indicated? Vol Urine Centrifuged Stl C. cayetanensis PCR Not detected Stool Rotavirus (PCR) Not detected Stool Adenovirus (PCR) Not detected Stool Astrovirus (PCR) Not detected Stool Cryptosporidium PCR Not detected Stl E.coli Shiga Tox PCR Not detected St Sh/Enteroin Ecoli PCR Not detected Stl Enterotoxigenic E PCR Not detected Stool EPEC (PCR) Not detected Stl E. histolytica PCR Not detected Stool Giardia Lamblia PCR Not detected Stool Sapovirus (PCR) Not detected Stl P. shigelloides PCR Not detected St Y.enterocolitica PCR Not detected Stool Vibrio (PCR) Not detected Stl Vibrio cholerae PCR Not detected Stl Enteroaggr Ecoli PCR Not detected Stl Norovirus GI/GII PCR Not detected Campylobacter (PCR) Not detected C. difficile Tox (PCR) Not detected SARS-CoV-2 (PCR) Influenza A (RT-PCR) Influenza B (RT-PCR) RSV (PCR) Salmonella (PCR) Not detected Assessment & Plan Assessment and plan (1) Fever and neutropenia: Status: Acute Plan Stage III rectal carcinoma admitted to the hospital with neutropenia and ongoing fever. Repeat cultures done including blood urine viral panel testing. Patient has no lactic acidosis. His blood pressure stable he does have a temperature. Viral panel testing is negative stool culture testing is negative blood culture no growth urine testing negative. Patient has a fever. He was started on cefepime will continue with his IV at this point. Will monitor closely his white blood cell count ANC count and continue IV antibiotics for 48 hours. Hypokalemia. Related to chemotherapy and diarrhea. Potassium continues to trend low. Despite IV potassium replacement. Will continue with IV potassium replacement and start on orals as tolerated. Hyponatremia. Patient has ongoing low-sodium due to his diarrhea. Continue with normal saline. Correct sodium slowly over the next 24-48 hours. Stage III rectal adenocarcinoma. Currently undergoing chemotherapy. Has had surgical consultation. Chemotherapy and radiation will be 1st they say surgery secondary. Diarrhea chemotherapy related diarrhea. Imodium will be continued at this point IV fluid and electrolyte replacement DVT prophylaxis with SCDs. Lovenox will be held if platelets are below 50. But he will continue.. Disposition and plan. Admitted to the hospital with ongoing neutropenic fever follow trend blood cultures continue with IV antibiotics IV fluid and electrolyte replacement. Anticipate patient to be in the hospital greater than 48 hours Time-Based Coding :: [TOTAL MINUTES] spent with patient and on the chart (including review of chart, obtaining history, exam, reviewing outside data, placing orders, documenting exam and treatment plan, and counseling patient) on [DATE]. Quality VTE Deep Vein Thrombosis/Pulmonary Embolism Present on Admission: No IH PROFEE Wet Process Head Miller Document charge(s): Yes Charge Codes Initial inpatient/observation care: [id number]
[2024-07-26] MEDS: POTASSIUM CHLORIDE 20 MEQ/15 ML UDC PO ×3 (09:32→20:06)
[2024-07-26] MEDS: ENOXAPARIN 40 MG/0.4 ML SYRINGE SUBCUT (09:32)
[2024-07-26 10:22] LABS: BUN Creatinine Ratio 8.7 (6-22); Blood Urea Nitrogen 6 mg/dL (9-20); Calcium 7.5 mg/dL (8.4-10.2); Carbon Dioxide 21 mmol/L (22-32); Chloride 106 mmol/L (98-107); Estimated Glomerular Filt Rate > 60 mL/min (>60); Glucose 129 mg/dL (70-99); HEMOLYSIS < 15 (0-50); Potassium 3.3 mmol/L (3.4-5.1); Sodium 134 mmol/L (137-145)
--- NOTE | 2024-07-26 15:32 | CM.DANOTE ---
Patient is a 78 yo male who was Re-admitted INPT Status on 07/26/24 for Neutropenic Fever with Potassium and Sodium abnormalities.? Pt has MCR and AARP for insurance and his PCP is Dr. Carlos Briseno at [facility].? EMR was reviewed.? Per MD, pt with hx of rectal carcinoma stage III and getting chemo and soon radiation from Oncologist at [facility].? Pt with increased weakness and diarrhea from chemo treatments and to have fluids and sodium and K today and repeat labs but likely here through the weekend. Pt recently admitted 07/22-07/24/24 for same and discharged home at pt's insistance and then two days later EMS was called and pt very weak, confused, and unable to ambulate at time of admission but has imporved. SW met bedside with pt and explained role and he confirms he lives in [place] with his spouse Ghada, who is also his DPOA, and both are fairly active and independent at baseline but they have a engineering associate that comes a couple times a month and their really good friends have been grocery shopping for them since his cancer dx.? Pt denies any HH or other formal CG in place.? Their son Jerad lives locally and can assist as needed.? Pt confirms his preference is to discharge home when stable and does not anticipate any discharge planning needs and states his good friend plans to provide transport home at d/c as his recently had a humerus fx that she is recovering from.? Pt does confirm that he has been feeling weaker and hopeful that as his labs improve so will his strength. Pt would be agreeable with PT eval if medically indicated prior to d/c to confirm safe plan of home and r/o HH. Pt has Port already in place for ongoing chemo and radiation and expressed disappointment that he had to be admitted to the hospital again and is hopeful to feel better soon. Plan: SW to follow closely for possible need for PT/OT eval to confirm safe d/c home with spouse and r/o any HH needs. SW to notify TCM group at d/c for outpt f/u as pt's PCP is Dr. Briseno. ELVIN Blackmon Discharge Planning/Care Management Advanced directive, confirm from FAMILY Start: 07/26/24 05:00 Freq: Q24H Status: Active Protocol: Document 07/26/24 05:00 MW (Rec: 07/26/24 05:02 MW [id number]) Advance Directive, confirm on record Time 04:30 Person contacted patient Copy received No CM Discharge Assessment Start: 07/26/24 02:18 Freq: Status: Active Protocol: Document 07/26/24 15:30 BF (Rec: 07/26/24 15:32 BF [id number]) Discharge Planning Assessment Assigned Maintenance Worker Swimming Pool ELVIN Coe DPOA/Assigned Designee Name Spouse Ghada Contact Information [phone] Advance Directives? No: states full code Advance Directives on File No History Provided By Patient,Significant Other, Medical Record Has Patient been admitted in last 30 Yes days? Comment Recently OBS status 07/22- for similar Prior Living Arrangements House Household Members spouse Type of transporation used prior to Drives own vehicle admit Independent with ADL's Yes Is patient alert and oriented? Yes Needs Assistance With Home Chores / Shopping Caregiver for Another No Community Services used prior to IV Therapy admission: Comment Getting chemo and soon radiation from [facility] D[facility] Already Rented / Owned FWW / Javier Lassiter Comment Pending eventual PT/OT eval if pt still weak. Barriers to Discharge No Discharge Plan Home Transportation Arrangement Friend plans to provide transport at d/c Additional Comment Pending possible PT/OT eval Whiteboard Updated in Patient Room with Yes name and ext. # of Maintenance Worker Swimming Pool Review Status In Process Please Provide Date Initial DC 07/26/24 Assessment Was Performed Next Review Type Continued Stay Review
[2024-07-26 17:07] LABS: BUN Creatinine Ratio 11.3 (6-22); Blood Urea Nitrogen 7 mg/dL (9-20); Calcium 7.6 mg/dL (8.4-10.2); Carbon Dioxide 19 mmol/L (22-32); Chloride 107 mmol/L (98-107); Estimated Glomerular Filt Rate > 60 mL/min (>60); Glucose 145 mg/dL (70-99); HEMOLYSIS < 15 (0-50); Potassium 3.6 mmol/L (3.4-5.1); Sodium 132 mmol/L (137-145)
[2024-07-26] MEDS: IBUPROFEN 600 MG TABLET PO (20:06)
[2024-07-27] VITALS: BP 123/70; PULSE 107; RESP 18; TEMP 37.4; O2SAT 97
[2024-07-27 02:00] VITALS: TEMP 36.8
[2024-07-27] MEDS: ACETAMINOPHEN 325 MG TABLET 650 MG PO (02:07)
[2024-07-27] MEDS: IBUPROFEN 600 MG TABLET PO (02:07)
[2024-07-27] MEDS: SODIUM CHLORIDE 0.9% 1,000 ML 100 ML IV (02:08)
[2024-07-27] MEDS: CEFEPIME 2 GM in SODIUM CHLORIDE 0.9% 100 ML IV ×2 (02:11→13:23)
[2024-07-27 04:00] VITALS: BP 100/56; PULSE 97; RESP 20; TEMP 36.8; O2SAT 94
[2024-07-27 06:36] LABS: BUN Creatinine Ratio 12.5 (6-22); Blood Urea Nitrogen 8 mg/dL (9-20); Calcium 7.7 mg/dL (8.4-10.2); Carbon Dioxide 17 mmol/L (22-32); Chloride 108 mmol/L (98-107); Estimated Glomerular Filt Rate > 60 mL/min (>60); Glucose 114 mg/dL (70-99); HEMOLYSIS < 15 (0-50); Potassium 3.2 mmol/L (3.4-5.1); Sodium 132 mmol/L (137-145)
[2024-07-27 06:39] LABS: Hematocrit 26.2 % (41-53); Mean Corpuscular HGB Conc 34.5 % (30-36); Mean Corpuscular Hemoglobin 30.5 PG (26-34); Mean Corpuscular Volume 88.5 fL (80-100); Platelet Count 83 X10^3/uL (150-400); Red Blood Cell Count 2.96 X10^6/uL (4.5-5.9); Red Cell Distribution Width 14.7 % (11.6-14.8)
[2024-07-27 06:41] LABS: Add Manual Diff / Slide Review NO
[2024-07-27 06:45] LABS: White Blood Cell Count 0.5 X10^3/uL (4.5-11.0)
--- NOTE | 2024-07-27 06:50 | PC.WOUNDPHOT ---
Late Entry: Photo taken by Jelly CAMEJO AM 07/26/24
--- NOTE | 2024-07-27 07:14 | PM.PN.IH.1 ---
Exam Vital Signs (past 8 hours): - 07/27/24 00:00 07/27/24 02:00 07/27/24 04:00 Temperature 99.3 F 98.3 F 98.2 F Pulse Rate 107 H 97 H Respiratory Rate 18 20 Blood Pressure 123/70 100/56 L Pulse Oximetry 97 94 Oxygen Flow Rate 0 0 Oxygen Delivery Method Room Air Oxygen Flow Rate 0 Narrative Exam Narrative: Gen.: Alert HEENT: Pupils equal round and reactive or mucosa is dry Cardio: S1-S2 regular rate and rhythm no murmurs appreciated. Respiratory: Lungs are clear to auscultation no wheezes or crackles normal respiratory effort. Abdomen: Soft nontender Extremities: Full range of motion no edema Neurologic: Grossly intact. Objective Labs 07/27/24 05:50 07/27/24 05:50 Labs: Laboratory Results - last 24 hr 07/26/24 07/26/24 07/27/24 09:48 16:26 05:50 WBC 0.5 L* RBC 2.96 L Hgb 9.0 L Hct 26.2 L MCV 88.5 MCH 30.5 MCHC 34.5 RDW 14.7 Plt Count 83 L Neut % (Auto) Not Reportable Lymph % (Auto) Not Reportable [place] % (Auto) Not Reportable Eos % (Auto) Not Reportable Baso % (Auto) Not Reportable Lymph # (Auto) Not Reportable [place] # (Auto) Not Reportable Baso # (Auto) Not Reportable Sodium 134 L 132 L 132 L Potassium 3.3 L 3.6 3.2 L Chloride 106 107 108 H Carbon Dioxide 21 L 19 L 17 L BUN 6 L 7 L 8 L Creatinine 0.69 0.62 L 0.64 L Estimated GFR > 60 > 60 > 60 BUN/Creatinine Ratio 8.7 11.3 12.5 Glucose 129 H 145 H 114 H Calcium 7.5 L 7.6 L 7.7 L [facility] Medical History (Updated 07/27/24 @ 07:19 by Carlos Briseno MD) Inguinal hernia, bilateral Erectile dysfunction (05/01/15) Localized pruritus Mild anemia Fatigue Hemorrhoids Hepatitis A Jaundice due to hepatitis (1971) Chicken pox GERD (gastroesophageal reflux disease) (~1989) Hearing loss (~1999) Measles Mumps Toe fracture, right (2013) Surgical History Anesthesia History of rectal surgery (1997) Status post colonoscopy (2008) Family History Father Brain tumor Stroke Mother Bowel obstruction Cancer Sister No problems noted. 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 Patient has been afebrile for the last 24 hours. Blood culture still pending. Getting IV antibiotics with cephalosporin. Tolerating well. White blood cells count still quite low. Patient is not hypotensive Hypokalemia. Chemotherapy diarrhea related. Potassium replacement orally and IV yesterday. Potassium still mildly low continue with IV and oral potassium replacement today Hyponatremia. Sodium has improved with normal saline. Will decrease normal saline encourage continued p.o. intake. Stage III rectal adenocarcinoma. Currently undergoing chemotherapy. Has had surgical consultation. Chemotherapy and radiation will be 1st they say surgery secondary. Diarrhea chemotherapy related diarrhea. Continue with Imodium. DVT prophylaxis with SCDs. Lovenox will be held if platelets are below 50. But he will continue.. Disposition and plan. Patient still needs IV antibiotics for 24 more hours. Was still having a hard time getting his electrolytes under control we will continue with IV fluid and electrolyte placement. Anticipate hospitalization for up to 48 hours longer. Time-Based Coding :: [TOTAL MINUTES] spent with patient and on the chart (including review of chart, obtaining history, exam, reviewing outside data, placing orders, documenting exam and treatment plan, and counseling patient) on [DATE]. Quality VTE Deep Vein Thrombosis/Pulmonary Embolism Present on Admission: No IH PROFEE Registered Nurse Nursery Document charge(s): Yes Charge Codes Subsequent inpatient/observation care: [id number]
[2024-07-27 08:00] VITALS: BP 96/67; PULSE 88; RESP 16; TEMP 36.4; O2SAT 98
[2024-07-27] MEDS: POTASSIUM CHLORIDE IN WATER 10 MEQ/100 ML PIGGYBACK 100 MEQ IV ×4 (08:15→12:13)
[2024-07-27] MEDS: LOPERAMIDE 2 MG CAPSULE PO (08:26)
[2024-07-27] MEDS: POTASSIUM CHLORIDE 20 MEQ/15 ML UDC PO (08:26)
[2024-07-27] MEDS: ENOXAPARIN 40 MG/0.4 ML SYRINGE SUBCUT (08:27)
--- NOTE | 2024-07-27 11:36 | CM.DPNOTE ---
DCP Continued: Reviewed EMR and team rounds for pt?s medical status. Per Provider, patient to continue with IV abx for another 24 hours and electrolyte replacement with IV fluid; anticipating another 48 hours of admission. Per RN, Pt's potassium is improving but WBC still low. Following for PT/OT needs due to weakness, none ordered at this time. Plan: Anticipating dc home on 07/29 or when medically cleared with family to transport. CM Team will continue to follow for coordination of discharge plans. KIRT Johnson
[2024-07-27 12:00] VITALS: BP 98/60; PULSE 80; RESP 17; TEMP 36.6; O2SAT 97
[2024-07-27] MEDS: POTASSIUM CHLORIDE 20 MEQ/15 ML UDC 40 MEQ PO ×2 (15:47→20:49)
[2024-07-27] MEDS: LOPERAMIDE 2 MG CAPSULE 4 MG PO (15:48)
[2024-07-27] MEDS: ONDANSETRON 4 MG/2 ML INJ IV (18:30)
[2024-07-27 20:00] VITALS: BP 135/75; PULSE 94; RESP 18; TEMP 36.7; O2SAT 98
[2024-07-27] MEDS: SODIUM CHLORIDE 0.9% 1,000 ML 75 ML IV (20:50)
[2024-07-27] MEDS: SODIUM CHLORIDE 0.9% FLUSH 10 ML IV (20:57)
[2024-07-28] VITALS: BP 146/81; PULSE 92; RESP 19; TEMP 36.2; O2SAT 97
[2024-07-28] MEDS: CEFEPIME 2 GM in SODIUM CHLORIDE 0.9% 100 ML IV ×2 (02:07→14:14)
[2024-07-28 04:00] VITALS: BP 122/83; PULSE 86; RESP 19; TEMP 36.8; O2SAT 98
[2024-07-28 05:40] LABS: Hematocrit 28.3 % (41-53); Hemoglobin 9.7 g/dL (13.5-17.5); Mean Corpuscular HGB Conc 34.2 % (30-36); Mean Corpuscular Hemoglobin 30.3 PG (26-34); Mean Corpuscular Volume 88.5 fL (80-100); Platelet Count 112 X10^3/uL (150-400)
[2024-07-28 05:46] LABS: Alanine Aminotransferase 28 IU/L (<50); Albumin 2.3 g/dL (3.5-5.0); Albumin Globulin Ratio 0.9 (1.0-2.8); Alkaline Phosphatase 98 U/L (38-126); Aspartate Aminotransferase 19 IU/L (17-59); Bilirubin Total 0.5 mg/dL (0.2-1.3); Blood Urea Nitrogen 9 mg/dL (9-20); Calcium 7.7 mg/dL (8.4-10.2); Carbon Dioxide 17 mmol/L (22-32); Chloride 108 mmol/L (98-107); Estimated Glomerular Filt Rate > 60 mL/min (>60); Globulin 2.7 g/dL (1.7-4.1); Glucose 114 mg/dL (70-99); HEMOLYSIS < 15 (0-50); Magnesium 1.7 mg/dL (1.6-2.3); Potassium 3.8 mmol/L (3.4-5.1); Sodium 131 mmol/L (137-145)
[2024-07-28 05:56] LABS: Add Manual Diff / Slide Review YES
[2024-07-28 06:18] LABS: Neutrophils Absolute Manual 180 /uL (3000-5900); Total Cells Counted 50
[2024-07-28 06:20] LABS: RBC Morphology Normal Morphology
[2024-07-28 08:00] VITALS: BP 113/72; PULSE 94; RESP 15; TEMP 36.7; O2SAT 96
[2024-07-28] MEDS: POTASSIUM CHLORIDE 20 MEQ/15 ML UDC 40 MEQ PO (08:56)
[2024-07-28] MEDS: ENOXAPARIN 40 MG/0.4 ML SYRINGE SUBCUT (08:56)
[2024-07-28] MEDS: MAGNESIUM CHLORIDE 64 MG TABLET 128 MG PO (08:57)
[2024-07-28] MEDS: LOPERAMIDE 2 MG CAPSULE 4 MG PO (09:01)
[2024-07-28] MEDS: SODIUM CHLORIDE 0.9% FLUSH 10 ML IV ×2 (09:02→20:42)
--- NOTE | 2024-07-28 09:16 | P.PN_ITS ---
Subjective Subjective Date Patient Seen: 07/28/24 Time Patient Seen: 09:16 Interval history: 78-year-old male undergoing treatment for colorectal cancer admitted with fever neutropenia and electrolyte disturbances He has also had significant diarrhea likely leading to his electrolyte disturbances This morning his potassium is back to normal. His white count is improved significantly, although his ANC remains quite low Sodium stable at 131 potassium 3.8 magnesium 1.7 Patient is sitting up in bedside chair says he was still quite weak and diarrhea he was essentially unchanged. Exam Vital Signs (past 8 hours): - 07/28/24 04:00 07/28/24 08:00 Temperature 98.2 F 98.1 F Pulse Rate 86 94 H Respiratory Rate 19 15 Blood Pressure 122/83 113/72 Pulse Oximetry 98 96 Oxygen Flow Rate 0 0 Oxygen Delivery Method Room Air Oxygen Flow Rate 0 Objective Labs 07/28/24 05:15 07/28/24 05:15 Labs: Laboratory Results - last 24 hr 07/28/24 05:15 WBC 1.0 L* D RBC 3.20 L Hgb 9.7 L Hct 28.3 L MCV 88.5 MCH 30.3 MCHC 34.2 RDW 15.0 H Plt Count 112 L Neut % (Auto) Not Reportable Lymph % (Auto) Not Reportable [place] % (Auto) Not Reportable Eos % (Auto) Not Reportable Baso % (Auto) Not Reportable Lymph # (Auto) Not Reportable [place] # (Auto) Not Reportable Baso # (Auto) Not Reportable Total Counted 50 Seg Neutrophils % 12.0 L Band Neutrophils % 6.0 Lymphocytes % (Manual) 36.0 Atypical Lymphs % 4.0 H Monocytes % (Manual) 34.0 H Eosinophils % (Manual) 8.0 H Neutrophils # (Manual) 180 L RBC Morphology Normal morphology Sodium 131 L Potassium 3.8 Chloride 108 H Carbon Dioxide 17 L BUN 9 Creatinine 0.60 L Estimated GFR > 60 BUN/Creatinine Ratio 15.0 Glucose 114 H Calcium 7.7 L Magnesium 1.7 Total Bilirubin 0.5 AST 19 ALT 28 Alkaline Phosphatase 98 Total Protein 5.0 L Albumin 2.3 L Globulin 2.7 Albumin/Globulin Ratio 0.9 L [facility] Medical History (Updated 07/27/24 @ 07:19 by Carlos Briseno MD) Localized pruritus Mild anemia Fatigue Hemorrhoids Hepatitis A Inguinal hernia, bilateral Jaundice due to hepatitis (1971) Chicken pox GERD (gastroesophageal reflux disease) (~1989) Hearing loss (~1999) Measles Mumps Toe fracture, right (2013) Erectile dysfunction (05/01/15) Surgical History Anesthesia History of rectal surgery (1997) Status post colonoscopy (2008) Family History Father Brain tumor Stroke Mother Bowel obstruction Cancer Sister No problems noted. Social History marital status: household members: spouse occupational status: previously employed Smoking Status: Former smoker alcohol intake: current substance use type: does not use Assessment & Plan Assessment & Plan narrative: 1. Neutropenia with fever-continue current IV parental antibiotics. Anticipate discharge hopefully in the next 24 -48 hours, and would send home with a broad- spectrum oral antibiotic such as levofloxacin verses a cephalosporin 2. Electrolytes-sodium stable potassium improve magnesium stable. Continue current oral replacement. Plan to recheck tomorrow. I am going to stop his IV fluids and see how he does without additional IV fluids through the course of the day in preparation for hopeful discharge tomorrow. Given this I think that is perfectly safe to discontinue telemetry at this point. 3. Stage III rectal adenocarcinoma-continue plan for treatment as per his oncologist and surgeon 4. Diarrhea-likely secondary to chemo and or his rectal cancer. Continue with aggressive Imodium, will try some Lomotil in addition see if that provides some additional benefit. Stool studies have been negative including PCR, on multiple occasions 5. VTE prophylaxis-patient is still on Lovenox with improving platelet count. I believe therefore that that is safe to continue that at this time. He is at higher than average risk for venous thromboembolism given his malignancy and his hospitalization etcetera. 6. Disposition-if patient remains stable through the course of the day and blood tests are stable as well likely can discharge tomorrow as above Time-Based Coding :: [TOTAL MINUTES] spent with patient and on the chart (including review of chart, obtaining history, exam, reviewing outside data, placing orders, documenting exam and treatment plan, and counseling patient) on [DATE]. Quality VTE Deep Vein Thrombosis/Pulmonary Embolism Present on Admission: No IH PROFEE Hogshead Mat Inspector Document charge(s): Yes Charge Codes Subsequent inpatient/observation care: [id number]
[2024-07-28 12:00] VITALS: BP 140/78; PULSE 100; RESP 16; TEMP 37.2; O2SAT 100
[2024-07-28] MEDS: POTASSIUM CHLORIDE 20 MEQ TAB 40 MEQ PO ×3 (12:06→20:41)
[2024-07-28 13:54] LABS: Clostridium Difficile Tox PCR Negative for C. diff (Negative)
--- NOTE | 2024-07-28 15:15 | CM.DPC ---
DCP Cont: Per MD, pt slowly improving and his K back to normal and white count improved but to get further electrolytes and continues to have diarrhea but anticipate possible discharge home tomorrow [place]. ELVIN Blackmon
[2024-07-28 20:00] VITALS: BP 130/66; PULSE 74; RESP 19; TEMP 37; O2SAT 96
[2024-07-28] MEDS: MAGNESIUM CHLORIDE 64 MG TABLET PO (20:41)
[2024-07-29] MEDS: CEFEPIME 2 GM in SODIUM CHLORIDE 0.9% 100 ML IV (01:49)
[2024-07-29] MEDS: ONDANSETRON 4 MG/2 ML INJ IV (04:15)
[2024-07-29 04:17] LABS: Magnesium 1.7 mg/dL (1.6-2.3)
[2024-07-29 04:18] LABS: BUN Creatinine Ratio 16.4 (6-22); Blood Urea Nitrogen 10 mg/dL (9-20); Calcium 7.7 mg/dL (8.4-10.2); Carbon Dioxide 17 mmol/L (22-32); Chloride 104 mmol/L (98-107); Estimated Glomerular Filt Rate > 60 mL/min (>60); Glucose 104 mg/dL (70-99); HEMOLYSIS < 15 (0-50); Potassium 3.8 mmol/L (3.4-5.1); Sodium 129 mmol/L (137-145)
[2024-07-29 04:21] VITALS: BP 116/72; PULSE 101; RESP 20; TEMP 36.6; O2SAT 96
[2024-07-29 08:00] VITALS: BP 124/85; PULSE 103; RESP 15; TEMP 36.8; O2SAT 97
[2024-07-29] MEDS: ENOXAPARIN 40 MG/0.4 ML SYRINGE SUBCUT (08:58)
[2024-07-29] MEDS: MAGNESIUM CHLORIDE 64 MG TABLET PO (08:59)
[2024-07-29] MEDS: SODIUM CHLORIDE 0.9% FLUSH 10 ML IV (08:59)
--- NOTE | 2024-07-29 10:44 | PM.DS.IH.1 ---
History of Present Illness History of Present Illness Date Patient Seen: 07/29/24 Time Patient Seen: 10:44 Chief complaint: Fever Narrative: 78-year-old male with stage III rectal carcinoma undergoing chemotherapy. Patient recently admitted to the hospital because of neutropenic fever hyponatremia and hypokalemia. Patient had correction of his electrolytes. At patient's insistence he was discharged home afterwards. Because of his neutropenia his improved sodium potassium and feeling better patient desired to go home. Patient was readmitted 48 hours later. With ongoing diarrhea with additional electrolyte disturbances including now hyponatremia and hypokalemia. Of note concern his white blood cell count is continue to drop. He had a fever of 100.2 at home. He was admitted back to the hospital with weakness and not feeling well electrolyte abnormalities and diarrhea. {from Dr. Briseno's H&P 07/26/24} Discharge Providers Provider Date of admission: 07/26/24 01:29 Discharge Date: 07/29/24 Primary care physician: Carlos Briseno MD Discharge provider: Ortiz Vargas MD Summary Hospital Course Discharge Diagnosis: 1. Neutropenic fever 2. Hypokalemia 3. Hyponatremia 4. Profuse diarrhea secondary to chemotherapy 5. Weakness 6. Colorectal cancer 7. Type 2 diabetes Hospital Course: As above patient was admitted to the hospital because of ongoing weakness diarrhea electrolyte disturbances and fever in the setting of neutropenia post chemotherapy Patient was placed on broad-spectrum IV antibiotics his fever curve reduced and went back to normal with this. No source of actual infection was ever identified. He will be discharged on another week of oral antibiotic therapy Patient was significant ongoing diarrhea which by the day of discharge had improved so that he no longer had any liquid stool. Various antidiarrheals were employed to assist with this. Patient had multiple testing performed for possible infectious source of his diarrhea and all of this testing was negative. It was therefore felt as though he was diarrhea was secondary to his chemotherapy for his colorectal cancer Electrolytes were replaced orally and parenterally. He was discharged on increased dose of oral potassium on oral magnesium as well as salt tablets to help maintain his serum sodium level Patient was feeling improved and up and around a little bit in his room on day of discharge. 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 Status at Discharge Cognitive/behavioral status at discharge: at baseline, oriented Functional status at discharge: independent ambulation Overall status at discharge: patient is progressing back to baseline Time Spent with Patient Time spent: Less than 30 minutes Exam Vital Signs (past 8 hours): - 07/29/24 04:21 07/29/24 08:00 Temperature 97.9 F 98.3 F Pulse Rate 101 H 103 H Respiratory Rate 20 15 Blood Pressure 116/72 124/85 Pulse Oximetry 96 97 Oxygen Flow Rate 0 0 Oxygen Delivery Method Room Air Oxygen Flow Rate 0 Objective Labs 07/28/24 05:15 07/29/24 03:57 Labs: Laboratory Results - last 24 hr 07/28/24 07/29/24 09:45 03:57 Sodium 129 L Potassium 3.8 Chloride 104 Carbon Dioxide 17 L BUN 10 Creatinine 0.61 L Estimated GFR > 60 BUN/Creatinine Ratio 16.4 Glucose 104 H Calcium 7.7 L Magnesium 1.7 C. difficile Tox (PCR) Negative for c. diff [facility] Medical History Localized pruritus Mild anemia Fatigue Hemorrhoids Hepatitis A Inguinal hernia, bilateral Jaundice due to hepatitis (1971) Chicken pox GERD (gastroesophageal reflux disease) (~1989) Hearing loss (~1999) Measles Mumps Toe fracture, right (2013) Erectile dysfunction (05/01/15) Surgical History Anesthesia History of rectal surgery (1997) Status post colonoscopy (2008) Family History Father Brain tumor Stroke Mother Bowel obstruction Cancer Sister No problems noted. Social History marital status: household members: spouse occupational status: previously employed Smoking Status: Former smoker alcohol intake: current substance use type: does not use Discharge Plan Discharge Plan Patient Disposition: Home Provider Discharge Comment: Patient should take new abx, as Rx'd to [facility], and notify Dr. Anne that I advise no infusion this coming week Discharge orders & Medications Prescriptions: New loperamide 2 mg Capsule 4 mg PO QID PRN (Reason: Diarrhea) Qty: 30 0RF diphenoxylate-atropine 2.5-0.025 mg Tablet 1 tab PO Q2H PRN (Reason: Diarrhea) Qty: 20 0RF potassium chloride [Klor-Con M20] 20 mEq Tablet,Er Particles/Crystals 40 meq PO QID Qty: 240 3RF Slow-Mag 71.5 mg Tablet,Delayed Release (Dr/Ec) 64 mg PO BID Qty: 60 0RF sodium chloride 1,000 mg tablet,soluble 1,000 mg PO BID Qty: 60 3RF cefixime 400 mg capsule 400 mg PO DAILY 7 Days Qty: 7 0RF Continued omeprazole 20 mg Capsule,Delayed Release(Dr/Ec) 20 mg PO DAILY Patient Comments: takes daily am Follow up/Referrals: Carlos Briseno MD [Primary Care Provider] - 1 Week Discharge Health Status Multidrug resistant organism: No MDRO Diet/Activity/Treatments Diet: Diet as Tolerated Skin/Wound/Dressing Care Report to your healthcare provider any signs of infection, such as:: chills, fever Visit Report/Discharge Packet Instructions: DI for Neutropenic Fever Stand Alone Forms: Patient Portal/API Discharge Data Primary Care Provider: Carlos Briseno Quality VTE Deep Vein Thrombosis/Pulmonary Embolism Present on Admission: No IH PROFEE Charge Codes Discharge inpatient/observation: [id number]
--- NOTE | 2024-07-29 10:59 | CM.DPNOTE ---
DCP note CONSTRUCTION DRIVER reviewed EMR per chart review, pt cleared to dc home. CONSTRUCTION DRIVER entered room and introduced self and role. RN removing IV. gave copy of IMM. pt denies other CM/DCP need at this time. reports family lives nearby and will come pick him up. P: dc home with spouse/son/other family support. no further CM needs identified at this time. will continue to follow as needed ELVIN Valdivia
--- NOTE | 2024-07-29 11:15 | PC.NURSE ---
Day shift: Discharge instructions gone over with patient. All questions answered, patient stated understanding. PIV + port-a-cath deaccessed prior to discharge. All belongings with patient. This RN escorted patient to exit via wheelchair where patient's son will drive him home.
== END 2024-07-29 11:18 | disposition home or self-care (01) | DRG 809 ==
LOC: ED 07-26 01:28 → AC 07-26 01:30
PROVIDERS: Internal Medicine; Pharmacist Pharmacist Clinician (PhC)/ Clinical Pharmacy Specialist; Admitting Provider Family Medicine; Emergency Provider Emergency Medicine; PCP Family Medicine; Referring Provider Emergency Medicine; Visit Provider Family Medicine
DX: D70.9 Neutropenia, unspecified (principal); C20 Malignant neoplasm of rectum; E87.1 Hypo-osmolality and hyponatremia; K52.1 Toxic gastroenteritis and colitis; R50.81 Fever presenting with conditions classified elsewhere; E87.6 Hypokalemia; R19.7 Diarrhea, unspecified; T45.1X5A Adverse effect of antineoplastic and immunosuppressive drugs, initial encounter; R53.1 Weakness; E11.9 Type 2 diabetes mellitus without complications; K21.9 Gastro-esophageal reflux disease without esophagitis; Z87.891 Personal history of nicotine dependence; Z95.828 Presence of other vascular implants and grafts; R50.2 Drug induced fever; R11.2 Nausea with vomiting, unspecified; Z11.52 Encounter for screening for COVID-19
CPT/HCPCS: 0241U; 36415; 71045; 80048; 80053; 81001; 81003; 82550; 83605; 83690; 83735; 84145; 84484; 85007; 85025; 85610; 85730; 87040; 87493; 87507; 93005; 96361; 96365; 96366; 96367; 96368; 99222; 99233; 99238; 99284; G0378; J0692; J1642; J1650; J2405; J2543; J7050

== ENCOUNTER → 2025-02-05 10:56 | Outpatient (CLI) | payer MEDICARE, SELFPAY ==
[2024-07-26 04:53] VITALS: BMI 20.8
--- NOTE | 2025-02-05 11:28 | DI.RAD.S_ITS ---
PROCEDURE: XR LUMBAR SPINE MIN 4V INDICATIONS: Gait abnormality; Curvature at L5(?) TECHNIQUE: 5 views of the lumbar spine acquired, including flexion and extension views. COMPARISON: [facility], CT, CT CHEST ABD PEL W CON, 03/20/2024, 10:23. FINDINGS: Bones: 5 nonrib-bearing vertebrae are present. Mild levoscoliosis centered at the L3 level. Mild multilevel disc height loss with endplate sclerosis and spurring. Mild L4-L5 and moderate L5-S1 facet joint arthropathy.. No vertebral body compression fractures. No suspicious bony lesions. Bones are osteopenic. Soft tissues: Overlying bowel gas pattern is normal. No suspicious soft tissue calcifications. Vascular calcifications indicate atherosclerosis. Flexion/extension: There is normal range of motion, with preserved normal alignment. IMPRESSION: No acute bony abnormality. Mild multilevel lumbar spine spondylosis similar to prior examination dated 03/20/2024. Dictated by: Radames LANGE Interpreted: Tarah Simmons MD on 02/05/2025 at 12:28 Transcribed by: GIOVANNY on 02/05/2025 at 12:30 Approved by: Tarah Simmons M.D. on 02/05/2025 at 16:06
[2025-02-05 13:14] LABS: Vitamin B12 236 pg/mL (239-931)
== END ==
PROVIDERS: PCP Family Medicine; Referring Provider Physician Assistant; Visit Provider Physician Assistant
DX: R26.9 Unspecified abnormalities of gait and mobility (principal); H10.9 Unspecified conjunctivitis
CPT/HCPCS: 72110; 82607